=== PATIENT | female | born 1940 | race Caucasian/White ===

== ENCOUNTER 2017-08-21 17:09 | Inpatient (IN) | payer MEDICAID ==
[~2017-08-21] VITALS: Ht 160 cm; Wt 89.0 kg
[2017-08-21] MEDS ORDERED: ASPIRIN 81 MG TAB PO STA (19:14)
[2017-08-21] MEDS ORDERED: NITROGLYCERIN 2% 1 GM OINT PKT TD STA (19:14)
[2017-08-21] MEDS ORDERED: NITROGLYCERIN (SL) 0.4 MG TAB SL PRN (19:30)
[2017-08-21 19:42] LABS: BASOPHIL # 0.1 10^3/ul (0.0-0.1); BASOPHILS % 0.8 % (0.0-2.0); EOSINOPHILS # 0.2 10^3/ul (0.0-0.5); EOSINOPHILS % 2.1 % (0.0-7.0); HEMATOCRIT 36.4 % (37.0-47.0); LYMPHOCYTES # 2.6 10^3/ul (0.8-2.9); LYMPHOCYTES % 34.6 % (15.0-51.0); MEAN CORPUSCULAR HEMOGLOBIN 29.2 pg (29.0-33.0); MEAN CORPUSCULAR VOLUME 88.6 fl (82.0-101.0); MONOCYTE # 0.8 10^3/ul (0.3-0.9); MONOCYTES % 10.2 % (0.0-11.0); NEUTROPHIL # 3.9 10^3/ul (1.6-7.5); NEUTROPHILS % 51.9 % (39.0-77.0); PLATELET COUNT 245 10^3/UL (140-415); RED BLOOD COUNT 4.11 10^6/ul (4.20-5.40); RED CELL DISTRIBUTION WIDTH 12.6 % (11.5-14.5); WHITE BLOOD COUNT 7.5 10^3/ul (4.8-10.8)
--- NOTE | 2017-08-21 20:09 | RADRPT ---
PROCEDURE: XR Chest. CLINICAL INDICATION: Chest pain. TECHNIQUE: Single frontal view. COMPARISON: None. FINDINGS: The lungs are clear. The heart size is normal. There is calcification in the aorta consistent with atherosclerosis. There is no pleural effusion. There is no pneumothorax. IMPRESSION: 1. Atherosclerosis. 2. Otherwise normal chest x-ray. RPTAT: QQ .Dickson Shaikh MD, MD Date Time Electronically viewed and signed by .Dickson Shaikh MD, on 08/21/2017 20:09 .R/
[2017-08-21 20:18] LABS: ANION GAP 11 (8-16); BLOOD UREA NITROGEN 14 mg/dl (7-20); CALCIUM 9.2 mg/dl (8.4-10.2); CARBON DIOXIDE 30 mmol/L (21-31); CHLORIDE 98 mmol/L (97-110); CREATININE 0.95 mg/dl (0.44-1.00); GLUCOSE 123 mg/dl (70-220); POTASSIUM 5.2 mmol/L (3.5-5.1); SODIUM 134 mmol/L (135-144)
[2017-08-21 20:30] LABS: TROPONIN-I < 0.012 ng/ml (0.00-0.12)
[2017-08-21] MEDS ORDERED: ACETAMINOPHEN 325 MG TAB PO PRN (21:00)
[2017-08-21] MEDS ORDERED: ONDANSETRON 4 MG INJ IV PRN (21:00)
--- NOTE | 2017-08-21 21:38 | ERA ---
ER Documentation Chief Complaint Date/Time DATE: 08/21/17 TIME: 21:36 Chief Complaint sob, chest pain when couging HPI Patient is a 76-year-old female with hypertension and high cholesterol who presents with chest pain. She has midsternal chest pain which radiates to her neck. The symptoms have been there for the past 8 days. She said the pain was worse today. She had a cough and shortness of breath as well. She goes to a local clinic for her primary care. ROS All systems reviewed and are negative except as per history of present illness. Allergies Allergies: Coded Allergies: No Known Allergy (Unverified , 08/21/17) PMhx/Soc Positive for hypertension and high cholesterol. FmHx Family History: No coronary disease Physical Exam Vitals Vital Signs Date Time Temp Pulse Resp B/P Pulse Ox O2 Delivery O2 Flow Rate FiO2 08/21/17 20:51 84 22 129/71 98 Room Air 08/21/17 20:00 84 15 131/95 Room Air 08/21/17 19:37 98.0 85 17 157/85 98 Room Air 08/21/17 17:13 98.1 86 18 145/72 99 Physical Exam Const: No acute distress Head: Atraumatic Eyes: Normal Conjunctiva ENT: Normal External Ears, Nose and Mouth. Neck: Full range of motion..~ No meningismus. Resp: Clear to auscultation bilaterally Cardio: Regular rate and rhythm, no murmurs Abd: Soft, non tender, non distended. Normal bowel sounds Skin: No petechiae or rashes Back: No midline or flank tenderness Ext: No cyanosis, or edema Neur: Awake and alert Psych: Normal Mood and Affect Result Diagram: 08/21/17193408/21/171934 Results 24 hrs Laboratory Tests Test 08/21/17 19:35 White Blood Count 7.510^3/ul Red Blood Count 4.1110^6/ul Hemoglobin 12.0g/dl Hematocrit 36.4% Mean Corpuscular Volume 88.6fl Mean Corpuscular Hemoglobin 29.2pg Mean Corpuscular Hemoglobin Concent 33.0g/dl Red Cell Distribution Width 12.6% Platelet Count 11516^3/UL Mean Platelet Volume 10.0fl Neutrophils % 51.9% Lymphocytes % 34.6% Monocytes % 10.2% Eosinophils % 2.1% Basophils % 0.8% Nucleated Red Blood Cells % 0.0/100WBC Neutrophils # 3.910^3/ul Lymphocytes # 2.610^3/ul Monocytes # 0.810^3/ul Eosinophils # 0.210^3/ul Basophils # 0.110^3/ul Nucleated Red Blood Cells # 0.010^3/ul Sodium Level 134mmol/L Potassium Level 5.2mmol/L Chloride Level 98mmol/L Carbon Dioxide Level 30mmol/L Anion Gap 11 Blood Urea Nitrogen 14mg/dl Creatinine 0.95mg/dl Glucose Level 123mg/dl Calcium Level 9.2mg/dl Troponin I < 0.012ng/ml Current Medications Medications (Trade) Dose Ordered Sig/Richard Route PRN Reason Start Time Stop Time Status Last Admin Dose Admin Aspirin (Aspirin) 162 mg ONCE STAT PO 08/21/17 19:14 08/21/17 19:16 DC 08/21/17 19:46 Nitroglycerin (Nitroglycerin 2% Oint) 1 inch ONCE STAT TD 08/21/17 19:14 08/21/17 19:16 DC 08/21/17 20:07 Nitroglycerin (Nitroglycerin (Sl Tab) 0.4 Mg) 1 tab Q5M UP TO 3 DOSES PRN SL CHEST PAIN 08/21/17 19:30 Ondansetron HCl (Zofran Inj) 4 mg ER BRIDGE PRN IV NAUSEA AND/OR VOMITING 08/21/17 21:00 08/22/17 20:59 Acetaminophen (Tylenol Tab) 650 mg ER BRIDGE PRN PO MILD PAIN/FEVER 08/21/17 21:00 08/22/17 20:59 Procedures/MDM EKG #1 read by me: Rate/Rhythm: Regular rate and rhythm at a rate of 86 Intervals: Normal Impression: No evidence of ischemia or arrhythmia EKG #2 read by me: Rate/Rhythm: Regular rate and rhythm at a rate of 88 Intervals: Normal Impression: No evidence of ischemia or arrhythmia PROCEDURE: XR Chest. CLINICAL INDICATION: Chest pain. TECHNIQUE: Single frontal view. COMPARISON: None. FINDINGS: The lungs are clear. The heart size is normal. There is calcification in the aorta consistent with atherosclerosis. There is no pleural effusion. There is no pneumothorax. IMPRESSION: 1. Atherosclerosis. 2. Otherwise normal chest x-ray. RPTAT: QQ .Dickson Shaikh MD, MD Date Time Electronically viewed and signed by .Dickson Shaikh MD, on 08/21/2017 20:09 Patient is a 76-year-old female with hypertension and high cholesterol presents with chest pain. I am concerned for possible acute coronary syndrome. The patient received aspirin and nitroglycerin. The patient will be admitted to a telemetry bed to the care of the panel team. The patient will need further workup for the cause of the chest pain which is potentially acute coronary syndrome. I doubt pneumonia, pneumothorax, pulmonary embolism, or aortic dissection at this time. I spoke with Dr. Patten from the panel team for admission. Departure Diagnosis: Primary Impression: Shortness of breath Additional Impression: Chest pain Qualified Code: R07.9 - Chest pain, unspecified type Condition: YODIT Rae MD Aug 21, 2017 21:38
[2017-08-21 22:45] VITALS: TEMP 98
[2017-08-21 23:00] VITALS: Ht 160 cm; Wt 89.0 kg
[2017-08-21 23:30] VITALS: BP 107/59; RESP 20
[2017-08-22] VITALS (12 sets, daily range): BP systolic 114–128; BP diastolic 58–74; PULSE 73–112; RESP 18
[2017-08-22] MEDS ORDERED: CARV3.1260 PO (00:14)
[2017-08-22] MEDS ORDERED: ENAL20TA PO (00:18)
[2017-08-22] MEDS ORDERED: SIMV20TA2 PO (00:19)
[2017-08-22] MEDS ORDERED: OMEP20CA16 PO (00:20)
[2017-08-22] MEDS ORDERED: morphine 2 MG INJ IV PRN (00:30)
[2017-08-22] MEDS ORDERED: ONDANSETRON 4 MG INJ IV PRN (00:30)
[2017-08-22] MEDS ORDERED: BISACODYL (EC) 5 MG TAB PO PRN (00:30)
[2017-08-22] MEDS ORDERED: NITROGLYCERIN (SL) 0.4 MG TAB SL PRN (00:30)
[2017-08-22] MEDS ORDERED: DOCUSATE SODIUM 100 MG CAP PO PRN (00:30)
[2017-08-22] MEDS ORDERED: NACL 0.9% 3 ML SYG IV SCH (00:30)
[2017-08-22] MEDS: PANTOPRAZOLE (EC) 40 MG TAB PO SCH ×2 (01:08→17:41)
[2017-08-22 01:50] LABS: CREATINE KINASE 148 IU/L (23-200)
[2017-08-22 02:01] LABS: CK-MB 1.26 ng/ml (0.0-2.4)
[2017-08-22 02:08] LABS: TROPONIN-I < 0.012 ng/ml (0.00-0.12)
--- NOTE | 2017-08-22 02:46 | HP ---
Date/Time of Note Date/Time of Note DATE: 08/22/17 TIME: 02:40 Assessment/Plan VTE Prophylaxis VTE Prophylaxis Intervention: SCD's Lines/Catheters IV [facility] Saline Lock Assessment/Plan Chief Complaint/Hosp Course This is a 76 year female being admitted to the telemetry floor for: #1 chest pain: COPD versus viral respiratory infection versus ACS. Patient does have a history of hypertension hyperlipidemia. She also was reporting some shortness of breath. And she also has a 30 year smoking history. At the current time will trend cardiac troponins 3, first set was negative. Will check a echocardiogram. EKG was normal sinus rhythm with no overt ST or T-wave abnormalities. Will also put the patient on duo nebs every 4 hours as well as 1 loading dose of Solu-Medrol at this time. As she did report some subjective fevers again this could be a viral illness as chest x-ray does not reveal any underlying infiltrates or consolidation. Will check a lipid panel, A1c, TSH. Will consider cardiac consultation depending on results and patient's clinical course. #2 hemoptysis: Tracheal irritation from cough versus PE: Patient is a obese female and reports mostly pleuritic pain, at the current time I will get a CTA of the chest to rule out PE and observe for any underlying signs of infection. Will continue to monitor her H&H. Will consider pulmonary consultation if indicated. She does not report any night sweats or chills or weight loss so the current time TB is low on the differential and the chest x-ray is normal. #3 hypertension: Continue home medications of carvedilol, SADIE inhibitor #4 hyperlipidemia: We will continue statin, check lipids #5 DVT and GI prolapses: SCDs, PPI Further treatment strategy will be implemented as per the clinical course Problems: HPI/ROS Admit Date/Time Admit Date/Time Aug 21, 2017 at 20:35 Hx of Present Illness cc: substernal chest pain x 8 days Patient is a 76-year-old female with hypertension and high cholesterol who presents with chest pain. She has midsternal chest pain which radiates to her neck. The symptoms have been there for the past 8 days. She said the pain was worse today. She had a cough and shortness of breath as well. She reports subjective fevers, but did not check her temp. She also reports at times she noticed specs of blood after repeated coughing bouts. She goes to a local clinic for her primary care. She has a 30 pack year smoking history. Denies any recent travel or any recent foreign visitors. She denies any night sweats or chills or weight loss. allergies: nkda meds: Carvedilol, enalapril, simvastatin, omeprazole ROS Const: As per HPI Eyes : No pain discharge or redness or change in visual acuity ENT: No pain, sore throat, congestion, congestion, dysphagia or discharge Respiratory: As per HPI Cardiovascular: As per HPI GI : no change in appetite, abdominal pain, nausea, vomiting, diarrhea, constipation, or change in the color his stool Genitourinary: No dysuria, hematuria, flank pain , discharge or CVA tenderness Musculoskeletal: No joint pain, back pain, neck pain, restricted range of motion in neck or joints Skin: No rash, bruising or hives Neuro: No headache, dizziness, syncope, seizure, focal weakness Endocrine: No polyuria, polydipsia, temperature intolerance Psych: No hallucination, depression, anxiety or suicidal ideation PMH/Family/Social Past Medical History htn, hld, sinusitis Past Surgical History cholecystectomy, hysterectomy, Family History Significant Family History: no pertinent family hx Social History Alcohol Use: none Smoking Status: Former smoker (30 pack years) Drug Use: none Exam/Review of Systems Vital Signs Vitals Vital Signs Date Time Temp Pulse Resp B/P Pulse Ox O2 Delivery O2 Flow Rate FiO2 08/22/17 00:30 85 08/21/17 23:30 98.0 20 107/59 94 08/21/17 22:45 Room Air Exam Exam General: This is an obese female laying in bed in no acute distress HEENT: Atraumatic, normocephalic. The pupils are equal, round and reactive. Extraocular motor are intact Neck: Supple with full range of motion. No rigidity or meningismus Chest: Nontender Lungs: Coarse breath sounds bilaterally, no use of accessory respiratory muscles Heart: Normal S1-S2, Regular rhythm and rate. No overt murmurs appreciated Abdomen: Soft , nontender, nondistended , bowel sounds are present. No guarding no rebound tenderness , No masses or organomegaly. No costovertebral temporal angle mass Extremities: Normal to inspection, no edema no cyanosis Neurologic: Normal mental status, speech normal, cranial nerves II through XII are intact, motor and sensory are intact, no focal weakness Additional Comments PROCEDURE: XR Chest. CLINICAL INDICATION: Chest pain. TECHNIQUE: Single frontal view. COMPARISON: None. FINDINGS: The lungs are clear. The heart size is normal. There is calcification in the aorta consistent with atherosclerosis. There is no pleural effusion. There is no pneumothorax. IMPRESSION: 1. Atherosclerosis. 2. Otherwise normal chest x-ray. RPTAT: QQ .Dickson Shaikh MD, MD Date Time Electronically viewed and signed by .Dickson Shaikh MD, MD on 08/21/2017 20:09 .R/ CC: YODIT GARCIA MD EKG: Rate/Rhythm: Regular rate and rhythm at a rate of 86 Intervals: Normal Impression: No evidence of ischemia or arrhythmia As per ED physician documentation Labs Result Diagram: 08/21/17193408/21/171934 Medications Medications Current Medications Carvedilol (Coreg) 3.125 mg BID PO Last administered on 08/22/17 01:06; Admin Dose 3.125 MG; Start 08/22/17 at 00:30 Enalapril Maleate (Vasotec) 20 mg DAILY PO ; Start 08/22/17 at 09:00 Pantoprazole (Protonix Tab) 40 mg BID@06,18 PO Last administered on 08/22/17 01:08; Admin Dose 40 MG; Start 08/22/17 at 01:00 Atorvastatin Calcium (Lipitor) 10 mg QHS PO ; Start 08/22/17 at 21:00 Ondansetron HCl (Zofran Inj) 4 mg Q6H PRN IV NAUSEA AND/OR VOMITING; Start 08/22/17 at 00:30 Nitroglycerin (Nitroglycerin (Sl Tab) 0.4 Mg) 1 tab Q5M PRN SL CHEST PAIN; Start 08/22/17 at 00:30 Morphine Sulfate (morphine) 2 mg Q4H PRN IV PAIN LEVEL 7-10; Start 08/22/17 at 00:30 Docusate Sodium (Colace) 100 mg Q12H PRN PO CONSTIPATION; Start 08/22/17 at 00: 30 Bisacodyl (Dulcolax) 5 mg DAILY PRN PO CONSTIPATION; Start 08/22/17 at 00:30 SPIKE VILLANUEVA Aug 22, 2017 02:46
[2017-08-22] MEDS ORDERED: METHYLPREDNISOLONE 125 MG INJ IV ONE (03:00)
[2017-08-22] MEDS: ALBUTEROL/IPRATROPIUM (NEB) 3 ML AMP HHN SCH ×5 (05:00→21:18)
[2017-08-22 06:21] LABS: BASOPHILS % 0.6 % (0.0-2.0); EOSINOPHILS # 0.2 10^3/ul (0.0-0.5); EOSINOPHILS % 2.5 % (0.0-7.0); HEMATOCRIT 36.4 % (37.0-47.0); HEMOGLOBIN 11.7 g/dl (12.0-16.0); LYMPHOCYTES # 2.7 10^3/ul (0.8-2.9); LYMPHOCYTES % 42.1 % (15.0-51.0); MEAN CORPUSCULAR HEMOGLOBIN 28.5 pg (29.0-33.0); MEAN CORPUSCULAR HGB CONC 32.1 g/dl (32.0-37.0); MEAN CORPUSCULAR VOLUME 88.8 fl (82.0-101.0); MONOCYTE # 0.8 10^3/ul (0.3-0.9); MONOCYTES % 11.9 % (0.0-11.0); NEUTROPHIL # 2.8 10^3/ul (1.6-7.5); NEUTROPHILS % 42.6 % (39.0-77.0); PLATELET COUNT 253 10^3/UL (140-415); RED CELL DISTRIBUTION WIDTH 11.9 % (11.5-14.5); WHITE BLOOD COUNT 6.5 10^3/ul (4.8-10.8)
[2017-08-22 06:57] LABS: ALBUMIN 3.5 g/dl (3.3-4.9); ALBUMIN/GLOBULIN RATIO 1.02; BILIRUBIN,INDIRECT 0.6 mg/dl (0-1.1); BILIRUBIN,TOTAL 0.6 mg/dl (0.2-1.3); CALCIUM 9.2 mg/dl (8.4-10.2); CHOL/HDL RATIO 4.5 RATIO; CK-MB 1.25 ng/ml (0.0-2.4); CREATINE KINASE 140 IU/L (23-200); CREATININE 0.73 mg/dl (0.44-1.00); MAGNESIUM 1.9 mg/dl (1.7-2.5); POTASSIUM 4.6 mmol/L (3.5-5.1); TOTAL PROTEIN 6.9 g/dl (6.1-8.1)
[2017-08-22 06:59] LABS: TROPONIN-I < 0.012 ng/ml (0.00-0.12)
[2017-08-22 07:12] LABS: THYROID STIMULATING HORMONE 3.05 MIU/L (0.465-4.680)
[2017-08-22] MEDS ORDERED: IOHEXOL 100 ML ONE (08:55)
[2017-08-22] MEDS ORDERED: SOD CHLORIDE 0.9% 100 ML ONE ×2 (08:55→22:30)
--- NOTE | 2017-08-22 09:49 | RADRPT ---
PROCEDURE: CT Chest Angiogram with contrast. CLINICAL INDICATION: Shortness of breath TECHNIQUE: CT scan of the chest with contrast was performed on a multidetector high-resolution CT scanner. The patient was scanned following the uncomplicated intravenous administration of 100 cc o f Isovue 300 contrast. Coronal and sagittal reformatted images were obtained from the axial source images. Additional 3D volumetric renderings were created. Images were reviewed on a [employer] PACS workstation. The total exam CTDI equals 7/42/18 mGy and the total exam DLP equals 702 mGy-cm. One or more of the following dose reduction techniques were used: Automated exposure control, Adjus tment of the mA and/or kV according to patient size, and/or use of iterative reconstruction techniqu e. COMPARISON: Correlation chest x-ray yesterday FINDINGS: Technically adequate exam for the evaluation of the pulmonary arteries to the segmental level. No in traluminal filling defects are seen. Ill-defined right infrahilar mass with extrinsic compression of the right lower lobar pulmonary bing ry and occlusion of the superior segment right lower lobe bronchus with postobstructive consolidatio n. There appears to be invasion into the subcarinal space with loss of normal fat planes with the es ophagus. There is right hilar adenopathy. Calcified bilateral hilar lymph nodes and right lower and left upper lobe calcified granulomas are a lso seen. Bilateral thyroid nodules measuring up to 8 mm in the right inferior thyroid pole. No significant pleural or pericardial effusion. The visualized upper abdomen is grossly unremarkable. Degenerative changes to the thoracic spine are seen. Age indeterminate mild T12 compression fracture . IMPRESSION: No evidence of pulmonary embolus. Ill-defined right infrahilar mass with extrinsic compression of the right lower lobar pulmonary bing ry and occlusion of the superior segment right lower lobe bronchus with postobstructive consolidatio n. There is associated right hilar adenopathy. There appears to be invasion into the subcarinal spac e with loss of normal fat planes with the esophagus. The findings are most concerning for a neoplast ic process. Recommend correlation with bronchoscopy and consider tissue sampling and PET imaging for follow-up. Additional calcified bilateral hilar lymph nodes and right lower and left upper lobe calcified granu philip are likely a sequela of prior granulomatous disease. Age indeterminate mild T12 compression fracture. A call report was made to VALERIA MONGE at 08/22/2017 9:46:22 AM. RPTAT: AA .Isaac Chavez MD, MD Date Time Electronically viewed and signed by .Isaac Chavez MD, on 08/22/2017 09:49 .T/
[2017-08-22] MEDS: ENALAPRIL 20 MG TAB PO SCH (09:53)
--- NOTE | 2017-08-22 11:34 | RADRPT ---
Echocardiogram Report Patient Name: BRODERICK COHN Gender: Female Date: 1940 Study Date: 22-Aug-2017 Policy Service Coordinator: Fara [facility] Location: [address] Ref. Physician: SPIKE VILLANUEVA Quality: Technically Difficult Study Procedures: Transthoracic echocardiogram with complete 2D, M-Mode, and doppler examination. Indications: Chest Pain. 2D/M Mode Doppler Measurement Value Normal Ranges Measurement Value Normal Ranges LVIDd 2D 4.3 3.5 - 5.6 cm AV Peak Jj 1.6 m/sec LVIDs 2D 2.9 2.1 - 4.1 cm AV Peak PG 10.0 mmHg FS 2D 32.9 % LVOT Peak Jj 1.2 m/sec LVPWd 2D 1.3 0.6 - 1.1 cm LVOT Peak PG 6.0 mmHg IVSd 2D 1.3 0.6 - 1.1 cm MV E Peak Jj 0.8 m/sec IVS/LVPW 2D 1.0 MV A Peak Jj 1.3 m/sec AoR Diam 2D 2.2 2.0 - 3.7 cm MV E/A 0.6 LA/Ao 2D 2 0 - 1 MV Decel Time 176 msec EDV 2D 80.6 cm3 MV E/A 0.6 ESV 2D 24.4 cm3 LA Dimen 2D 3.5 2.3 - 4.0 cm Findings Left Ventricle: Normal left ventricular systolic function. Normal left ventricular cavity size. Normal left ventricular wall thickness. Ejection fraction is visually estimated at 65 %. Tissue Doppler/Mitral Doppler indices are within normal limits. Right Ventricle: Normal right ventricular size. Normal right ventricular systolic function. Left Atrium: The left atrium is normal in size. Right Atrium: The right atrium is normal in size. Mitral Valve: Normal appearance of the mitral valve. Normal appearance and function of the mitral valve with trace physiologic regurgitation. Trace mitral regurgitation. Aortic Valve: Normal appearance of the aortic valve. No significant aortic stenosis or insufficiency. Tricuspid Valve: Normal appearance of the tricuspid valve. Unable to obtain RVSP due to minimal presence of tricuspid regurgitation. There is trace tricuspid regurgitation. Pulmonic Valve: Pulmonic valve not well visualized. There is trace pulmonic regurgitation. Pericardium: Normal pericardium with no significant pericardial effusion. Aorta: Normal aortic root. IVC: Normal size and normal respiratory collapse consistent with normal right atrial pressure. Conclusions 1.Normal left ventricular systolic function. Normal left ventricular cavity size. Normal left ventricular wall thickness. Ejection fraction is visually estimated at 65 %. Tissue Doppler/Mitral Doppler indices are within normal limits. 2.Unable to obtain RVSP due to minimal presence of tricuspid regurgitation. Normal size and normal respiratory collapse consistent with normal right atrial pressure. Electronically Signed By: Donte Khan 22-Aug-2017 11:33:20 -0700 Patient Name: BRODERICK COHN Study Date: 22-Aug-2017 [id number]
--- NOTE | 2017-08-22 15:41 | PN ---
Date/Time of Note Date/Time of Note DATE: 08/22/17 TIME: 15:38 Assessment/Plan VTE Prophylaxis VTE Prophylaxis Intervention: SCD's Lines/Catheters IV Catheter Type (from Nrsg): Saline Lock Assessment/Plan Assessment/Plan 76 yo F presented with chest pain found to have R lung mass. This is the most likely cause of her pain. #lung mass: pulm consult for bronch v other tissue sampling consider staging studies pending pulm eval cont home meds general diet dc tele Subjective 24 Hr Interval Summary Free Text/Dictation CT from this AM with R upper lung mass. dw pt and daughter using language line. Pt reports a week of dysphagia, no weight loss Exam/Review of Systems Vital Signs Vitals Vital Signs Date Time Temp Pulse Resp B/P Pulse Ox O2 Delivery O2 Flow Rate FiO2 08/22/17 13:37 98.0 78 18 128/71 98 08/21/17 23:00 Nasal Cannula 2.0 Intake and Output 08/21/17 08/21/17 08/22/17 15:00 23:00 07:00 Intake Total 400 ml Balance 400 ml Exam nad no mrg lungs clear abd soft no rashes CT chest with R hilar mass Results Result Diagram: 08/22/17 0558 08/22/17 0558 Results 24 hrs Laboratory Tests Test 08/21/17 19:35 08/22/17 01:00 08/22/17 05:58 White Blood Count 7.5 6.5 Red Blood Count 4.11 L 4.10 L Hemoglobin 12.0 11.7 L Hematocrit 36.4 L 36.4 L Mean Corpuscular Volume 88.6 88.8 Mean Corpuscular Hemoglobin 29.2 28.5 L Mean Corpuscular Hemoglobin Concent 33.0 32.1 Red Cell Distribution Width 12.6 11.9 Platelet Count 245 253 Mean Platelet Volume 10.0 10.0 Neutrophils % 51.9 42.6 Lymphocytes % 34.6 42.1 Monocytes % 10.2 11.9 H Eosinophils % 2.1 2.5 Basophils % 0.8 0.6 Nucleated Red Blood Cells % 0.0 0.0 Neutrophils # 3.9 2.8 Lymphocytes # 2.6 2.7 Monocytes # 0.8 0.8 Eosinophils # 0.2 0.2 Basophils # 0.1 0.0 Nucleated Red Blood Cells # 0.0 0.0 Sodium Level 134 L 137 Potassium Level 5.2 H 4.6 Chloride Level 98 102 Carbon Dioxide Level 30 30 Anion Gap 11 10 Blood Urea Nitrogen 14 10 Creatinine 0.95 0.73 Glucose Level 123 100 Calcium Level 9.2 9.2 Troponin I < 0.012 < 0.012 < 0.012 Creatine Kinase 148 140 Creatine Kinase Index 0.9 0.9 Creatinine Kinase MB (Mass) 1.26 1.25 Hemoglobin A1c 5.7 Magnesium Level 1.9 Total Bilirubin 0.6 Direct Bilirubin 0.00 Indirect Bilirubin 0.6 Aspartate Amino Transf (AST/SGOT) 21 Alanine Aminotransferase (ALT/SGPT) 29 Alkaline Phosphatase 106 Total Protein 6.9 Albumin 3.5 Globulin 3.40 H Albumin/Globulin Ratio 1.02 Triglycerides Level 145 Cholesterol Level 205 H LDL Cholesterol, Calculated 131 HDL Cholesterol 45 Cholesterol/HDL Ratio 4.5 Thyroid Stimulating Hormone (TSH) 3.050 Medications Medications Current Medications Carvedilol (Coreg) 3.125 mg BID PO Last administered on 08/22/17 09:54; Admin Dose 3.125 MG; Start 08/22/17 at 00:30 Enalapril Maleate (Vasotec) 20 mg DAILY PO Last administered on 08/22/17 09:53 ; Admin Dose 20 MG; Start 08/22/17 at 09:00 Pantoprazole (Protonix Tab) 40 mg BID@06,18 PO Last administered on 08/22/17 01:08; Admin Dose 40 MG; Start 08/22/17 at 01:00 Atorvastatin Calcium (Lipitor) 10 mg QHS PO ; Start 08/22/17 at 21:00 Ondansetron HCl (Zofran Inj) 4 mg Q6H PRN IV NAUSEA AND/OR VOMITING; Start 08/22/17 at 00:30 Nitroglycerin (Nitroglycerin (Sl Tab) 0.4 Mg) 1 tab Q5M PRN SL CHEST PAIN; Start 08/22/17 at 00:30 Morphine Sulfate (morphine) 2 mg Q4H PRN IV PAIN LEVEL 7-10; Start 08/22/17 at 00:30 Docusate Sodium (Colace) 100 mg Q12H PRN PO CONSTIPATION; Start 08/22/17 at 00: 30 Bisacodyl (Dulcolax) 5 mg DAILY PRN PO CONSTIPATION; Start 08/22/17 at 00:30 SONG NOBLES MD Aug 22, 2017 15:41
--- NOTE | 2017-08-22 16:37 | CONS ---
Date/Time of Note Date/Time of Note DATE: 08/22/17 TIME: 16:29 Assessment/Plan Assessment/Plan Additional Assessment/Plan IMP: 1. Right-sided perihilar lung mass with associated mediastinal and hilar adenopathy--c/w primary bronchogenic cancer. Radiographically T3(or3)N2 for now. 2. Post-obstructive pneumonia RECS: 1. Would need a bronchoscopy with biopsy of lesion involving bronchus intermedius and proximal RLL, as well as sampling subcarinal LN 2. Complete staging with CT abdomen/pelvis/brain. 3. Treat for post-obstructive pna with augmentin 4. BDs 5. Check coags; possible bronch on Wednesday. Consultation Date/Type/Reason Admit Date/Time Aug 21, 2017 at 20:35 Type of Consultation: Pulmonary Hx of Present Illness 76-year-old year-old Beninese speaking female with hypertension and high cholesterol who presents with chest pain and trace hemoptysis found to have an ill-defined right lower elbert-hilar mass with associated mediastinal and hilar adenopathy. Prior tobacco history and history of exposure to biomass fuels cooking at home with wood burning ovens. Constitutional: improved, no complaints Eyes: no complaints ENT: congestion, no complaints Respiratory: cough, pleuritic pain, shortness of breath, sputum Cardiovascular: chest pain, no complaints Gastrointestinal: no complaints Genitourinary: no complaints Musculoskeletal: no complaints Skin: no complaints Neurologic: no complaints Endocrine: no complaints Lymphatic: no complaints Psychological: no complaints Past Medical History Medical History: high cholesterol Past Surgical History Past Surgical Hx: no surgical history Family History Significant Family History: no pertinent family hx Social History Alcohol Use: none Smoking Status: Former smoker (30 pack years) Drug Use: none Other Social History Cooking at home for years with wood burning ovens. Exam/Review of Systems Vital Signs Vitals Vital Signs Date Time Temp Pulse Resp B/P Pulse Ox O2 Delivery O2 Flow Rate FiO2 08/22/17 16:11 107 08/22/17 13:37 98.0 18 128/71 98 08/21/17 23:00 Nasal Cannula 2.0 Intake and Output 08/21/17 08/21/17 08/22/17 15:00 23:00 07:00 Intake Total 400 ml Balance 400 ml Exam Constitutional: alert, oriented, well developed Psych: nl mood/affect, no complaints Head: atraumatic, normocephalic Eyes: EOMI, nl conjunctiva, nl lids, nl sclera ENMT: mucosa pink and moist, nl external ears & nose, nl lips & teeth, nl nasal mucosa & septum Neck: non-tender, supple Respiratory: clear to auscultation, crackles/rales, normal air movement Cardiovascular: nl pulses, regular rate and rhythm Gastrointestinal: nl liver, spleen, non-tender, soft Musculoskeletal: nl extremities to inspection, nl gait and stance Extremities: normal pulses Neurological: [employer] II-XII intact, nl mental status Results Result Diagram: 08/22/17 0558 08/22/17 0558 Results 24 hrs Laboratory Tests Test 08/21/17 19:35 08/22/17 01:00 08/22/17 05:58 White Blood Count 7.5 6.5 Red Blood Count 4.11 L 4.10 L Hemoglobin 12.0 11.7 L Hematocrit 36.4 L 36.4 L Mean Corpuscular Volume 88.6 88.8 Mean Corpuscular Hemoglobin 29.2 28.5 L Mean Corpuscular Hemoglobin Concent 33.0 32.1 Red Cell Distribution Width 12.6 11.9 Platelet Count 245 253 Mean Platelet Volume 10.0 10.0 Neutrophils % 51.9 42.6 Lymphocytes % 34.6 42.1 Monocytes % 10.2 11.9 H Eosinophils % 2.1 2.5 Basophils % 0.8 0.6 Nucleated Red Blood Cells % 0.0 0.0 Neutrophils # 3.9 2.8 Lymphocytes # 2.6 2.7 Monocytes # 0.8 0.8 Eosinophils # 0.2 0.2 Basophils # 0.1 0.0 Nucleated Red Blood Cells # 0.0 0.0 Sodium Level 134 L 137 Potassium Level 5.2 H 4.6 Chloride Level 98 102 Carbon Dioxide Level 30 30 Anion Gap 11 10 Blood Urea Nitrogen 14 10 Creatinine 0.95 0.73 Glucose Level 123 100 Calcium Level 9.2 9.2 Troponin I < 0.012 < 0.012 < 0.012 Creatine Kinase 148 140 Creatine Kinase Index 0.9 0.9 Creatinine Kinase MB (Mass) 1.26 1.25 Hemoglobin A1c 5.7 Magnesium Level 1.9 Total Bilirubin 0.6 Direct Bilirubin 0.00 Indirect Bilirubin 0.6 Aspartate Amino Transf (AST/SGOT) 21 Alanine Aminotransferase (ALT/SGPT) 29 Alkaline Phosphatase 106 Total Protein 6.9 Albumin 3.5 Globulin 3.40 H Albumin/Globulin Ratio 1.02 Triglycerides Level 145 Cholesterol Level 205 H LDL Cholesterol, Calculated 131 HDL Cholesterol 45 Cholesterol/HDL Ratio 4.5 Thyroid Stimulating Hormone (TSH) 3.050 Medications Medications Current Medications Carvedilol (Coreg) 3.125 mg BID PO Last administered on 08/22/17 09:54; Admin Dose 3.125 MG; Start 08/22/17 at 00:30 Enalapril Maleate (Vasotec) 20 mg DAILY PO Last administered on 08/22/17 09:53 ; Admin Dose 20 MG; Start 08/22/17 at 09:00 Pantoprazole (Protonix Tab) 40 mg BID@06,18 PO Last administered on 08/22/17 01:08; Admin Dose 40 MG; Start 08/22/17 at 01:00 Atorvastatin Calcium (Lipitor) 10 mg QHS PO ; Start 08/22/17 at 21:00 Ondansetron HCl (Zofran Inj) 4 mg Q6H PRN IV NAUSEA AND/OR VOMITING; Start 08/22/17 at 00:30 Nitroglycerin (Nitroglycerin (Sl Tab) 0.4 Mg) 1 tab Q5M PRN SL CHEST PAIN; Start 08/22/17 at 00:30 Morphine Sulfate (morphine) 2 mg Q4H PRN IV PAIN LEVEL 7-10; Start 08/22/17 at 00:30 Docusate Sodium (Colace) 100 mg Q12H PRN PO CONSTIPATION; Start 08/22/17 at 00: 30 Bisacodyl (Dulcolax) 5 mg DAILY PRN PO CONSTIPATION; Start 08/22/17 at 00:30 LIBORIO ANTON MD Aug 22, 2017 16:37
[2017-08-22] MEDS: ATORVASTATIN 10 MG TAB PO SCH (20:39)
[2017-08-22] MEDS: AMOXICILLIN/CLAV 875 MG TAB PO SCH (20:39)
[2017-08-22] MEDS ORDERED: IOHEXOL 300MG/ML 150 ML BTL ONE (22:30)
[2017-08-23] MEDS: ALBUTEROL/IPRATROPIUM (NEB) 3 ML AMP HHN SCH ×7 (01:00→21:27)
[2017-08-23 01:55] VITALS: BP 103/59; RESP 18
[2017-08-23 06:11] LABS: INR 1.01; PROTIME 13.3 Sec (12.2-14.2)
[2017-08-23 06:12] LABS: PARTIAL THROMBOPLASTIN TIME 29.3 Sec (25.0-35.0)
[2017-08-23] MEDS: PANTOPRAZOLE (EC) 40 MG TAB PO SCH ×2 (06:23→17:17)
[2017-08-23 07:40] VITALS: BP 140/76; RESP 18
--- NOTE | 2017-08-23 07:56 | RADRPT ---
PROCEDURE: CT scan of the brain with and without contrast. CLINICAL INDICATION: Staging. TECHNIQUE: Thin section axial, coronal and sagittal images were performed through the brain with a nd without injection of 75 cc of Omnipaque-300.. Radiation dose: CTDI: 45 and DLP: 1441. One or more of the following dose reduction techniques were used: - Automated exposure control. - Adjustment of the mA and/or kV according to patient size. Use of iterative reconstruction technique. COMPARISON: No. FINDINGS: The fourth, third and lateral ventricles are moderately dilated with proportional sulcal dilatation. No enhancing or nonenhancing mass is noted on pre or postcontrast images. There is an empty sella. There are vascular calcifications in the cavernous portions of the internal carotid arteries. There is no evidence of an aneurysm or AV malformation. The paranasal sinuses are clear. The mastoid air cells and internal auditory canals are normal. The dural sinuses are patent. The bony calvarium is intact with no evidence of a bone metastasis. IMPRESSION: 1. No brain metastasis is identified. 2. Mild cerebral and cerebellar atrophy. 3. Atherosclerotic vascular disease involving the cavernous portions of the internal carotid arteri es. 4. Empty sella. RPTAT:AAJJ Physician Ifeanyi Date Time Electronically viewed and signed by Physician Ifeanyi on 08/23/2017 07:56 JORGE L
[2017-08-23] MEDS: AMOXICILLIN/CLAV 875 MG TAB PO SCH ×3 (08:46→20:38)
[2017-08-23] MEDS: ENALAPRIL 20 MG TAB PO SCH ×2 (08:47→10:23)
[2017-08-23] MEDS ORDERED: SOD CHLORIDE 0.9% 100 ML ONE (09:29)
[2017-08-23] MEDS ORDERED: IODIXANOL LOCM 100 ML BTL ONE (09:30)
--- NOTE | 2017-08-23 11:40 | PN ---
Date/Time of Note Date/Time of Note DATE: 08/23/17 TIME: 11:33 Assessment/Plan VTE Prophylaxis VTE Prophylaxis Intervention: SCD's Lines/Catheters IV [facility] Saline Lock Assessment/Plan Chief Complaint/Hosp Course Assessment/Plan: 76 yo F presented with chest pain found to have R lung mass, with possible postobstructive pneumonia as well. 1. lung mass: Per pulmonary team, this likely represents a right-sided perihilar lung mass with associated mediastinal and hilar adenopathy--c/w primary bronchogenic cancer. Radiographically T3(or3)N2 for now. - Follow-up pulm consult for bronch v other tissue sampling - consider staging studies -CT abdomen pelvis results are still pending, follow-up these - cont home meds - general diet -Continue Augmentin 2. High cholesterol: Continue Lipitor Problems: Subjective 24 Hr Interval Summary Free Text/Dictation No acute events overnight, seen by pulmonary team yesterday. Exam/Review of Systems Vital Signs Vitals Vital Signs Date Time Temp Pulse Resp B/P Pulse Ox O2 Delivery O2 Flow Rate FiO2 08/23/17 08:05 82 18 98 21 08/23/17 08:00 Nasal Cannula 08/23/17 07:40 98.9 140/76 08/22/17 20:22 2.0 Intake and Output 08/22/17 08/22/17 08/23/17 15:00 23:00 07:00 Intake Total 750 ml 200 ml Balance 750 ml 200 ml Exam General: obese female laying in bed in no acute distress HEENT: Atraumatic, normocephalic. The pupils are equal, round and reactive. Extraocular motor are intact Neck: Supple with full range of motion. No rigidity or meningismus Chest: Nontender Lungs: Coarse breath sounds bilaterally, no use of accessory respiratory muscles Heart: Normal S1-S2, Regular rhythm and rate. No overt murmurs appreciated Abdomen: Soft , nontender, nondistended, bowel sounds are present. No guarding no rebound tenderness Extremities: Normal to inspection, no edema no cyanosis Neurologic: Normal mental status, speech normal, cranial nerves II through XII are intact, motor and sensory are intact, no focal weakness Results Result Diagram: 08/22/17 0558 08/22/17 0558 Results 24 hrs Laboratory Tests Test 08/23/17 04:39 Prothrombin Time 13.3 Prothrombin Time Ratio 1.0 INR International Normalized Ratio 1.01 Activated Partial Thromboplast Time 29.3 Medications Medications Current Medications Carvedilol (Coreg) 3.125 mg BID PO Last administered on 08/23/17 10:23; Admin Dose 3.125 MG; Start 08/22/17 at 00:30 Enalapril Maleate (Vasotec) 20 mg DAILY PO Last administered on 08/23/17 10:23 ; Admin Dose 20 MG; Start 08/22/17 at 09:00 Pantoprazole (Protonix Tab) 40 mg BID@,18 PO Last administered on 08/23/17 06:23; Admin Dose 40 MG; Start 08/22/17 at 01:00 Atorvastatin Calcium (Lipitor) 10 mg QHS PO Last administered on 08/22/17 20: 39; Admin Dose 10 MG; Start 08/22/17 at 21:00 Ondansetron HCl (Zofran Inj) 4 mg Q6H PRN IV NAUSEA AND/OR VOMITING; Start 08/22/17 at 00:30 Nitroglycerin (Nitroglycerin (Sl Tab) 0.4 Mg) 1 tab Q5M PRN SL CHEST PAIN; Start 08/22/17 at 00:30 Morphine Sulfate (morphine) 2 mg Q4H PRN IV PAIN LEVEL 7-10; Start 08/22/17 at 00:30 Docusate Sodium (Colace) 100 mg Q12H PRN PO CONSTIPATION; Start 08/22/17 at 00: 30 Bisacodyl (Dulcolax) 5 mg DAILY PRN PO CONSTIPATION; Start 08/22/17 at 00:30 Amoxicillin/ Clavulanate Potassium (Augmentin) 875 mg BID PO Last administered on 08/23/17 10:23; Admin Dose 875 MG; Start 08/22/17 at 21:00; Stop 08/29/17 at 20:59 ALANNA TAM Aug 23, 2017 11:40
[2017-08-23 14:35] VITALS: BP 133/64; RESP 18
--- NOTE | 2017-08-23 15:24 | RADRPT ---
PROCEDURE: CT Abdomen and Pelvis with contrast. CLINICAL INDICATION: Staging. Right infrahilar pulmonary mass. Abdomen and pelvis pain. TECHNIQUE: CT scan of the abdomen and pelvis with contrast was performed. The patient was scanned following the uncomplicated intravenous administration of 100 cc of Visipaque 320. Coronal and sag ittal reformatted images were obtained from the axial source images. Images were reviewed on a high- resolution PACS workstation. Total exam DLP is 957.43 mGy-cm. CTDIvol is 17.81 mGy. One or more o f the following dose reduction techniques were used: Automated exposure control, adjustment of the m A and/or kV according to patient size, use of iterative reconstruction technique. COMPARISON: CT pulmonary angiogram dated 08/22/2017. FINDINGS: There is mild atelectasis at the right lung base posteriorly medially. The lung bases are otherwise normal. There is no pleural effusion or pericardial effusion. The heart size is normal. The liver is normal in size and attenuation. There is no focal hepatic lesion. The gallbladder is not visualized indicating it may be surgically absent. The bile ducts are mildly diffusely dilated with no obstructing lesion visualized. The spleen is normal in size. There is no focal splenic lesion. Both adrenals are normal with no enlargement or mass. The pancreas is unremarkable with no mass or evidence of pancreatitis. Both kidneys demonstrate normal contrast enhancement. There is no renal mass or hydronephrosis. The abdominal aorta is not dilated. There is calcification in the aorta consistent with atherosclero sis. There is no retroperitoneal lymphadenopathy or mass. There is no pelvic lymphadenopathy or mass. The bladder and distal ureters are normal. The periappendiceal region is unremarkable with no evidence of appendicitis. The appendix is well se en and appears normal. The bowel and mesentery are normal. There is diastasis of the rectus abdominous with midline abdomin al wall hernia containing omentum. There is no herniated bowel. There is no free fluid or free gas. There are degenerative changes of the spine. There is no fracture or lytic lesion IMPRESSION: 1. Mild atelectasis at the right lung base posteriorly. 2. Gallbladder not visualized indicating it may be surgically absent. 3. Mildly diffusely dilated bile ducts with no obstructing lesion visualized. 4. Atherosclerosis. 5. Diastasis of the rectus abdominous with midline abdominal wall hernia containing omentum. No her niated bowel. 6. Degenerative changes of the spine. RPTAT: QQ .Dickson Shaikh MD, Date Time Electronically viewed and signed by .Dickson Shaikh MD, MD on 08/23/2017 15:24 .R/
[2017-08-23 19:17] VITALS: BP 119/73; RESP 18
[2017-08-23] MEDS: ATORVASTATIN 10 MG TAB PO SCH (20:38)
[2017-08-24] MEDS: ALBUTEROL/IPRATROPIUM (NEB) 3 ML AMP HHN SCH ×6 (00:44→20:20)
[2017-08-24 01:39] VITALS: BP 131/77; RESP 18
[2017-08-24 05:44] LABS: BASOPHILS % 0.4 % (0.0-2.0); EOSINOPHILS # 0.1 10^3/ul (0.0-0.5); EOSINOPHILS % 0.6 % (0.0-7.0); HEMATOCRIT 37.1 % (37.0-47.0); HEMOGLOBIN 11.7 g/dl (12.0-16.0); LYMPHOCYTES # 3.9 10^3/ul (0.8-2.9); LYMPHOCYTES % 39.8 % (15.0-51.0); MEAN CORPUSCULAR HEMOGLOBIN 28.2 pg (29.0-33.0); MEAN CORPUSCULAR HGB CONC 31.5 g/dl (32.0-37.0); MEAN CORPUSCULAR VOLUME 89.4 fl (82.0-101.0); MEAN PLATELET VOLUME 9.9 fl (7.4-10.4); MONOCYTE # 0.7 10^3/ul (0.3-0.9); MONOCYTES % 7.4 % (0.0-11.0); NEUTROPHIL # 5.1 10^3/ul (1.6-7.5); NEUTROPHILS % 51.4 % (39.0-77.0); PLATELET COUNT 274 10^3/UL (140-415); RED BLOOD COUNT 4.15 10^6/ul (4.20-5.40); RED CELL DISTRIBUTION WIDTH 12.3 % (11.5-14.5); WHITE BLOOD COUNT 9.9 10^3/ul (4.8-10.8)
[2017-08-24 06:28] LABS: CALCIUM 9.1 mg/dl (8.4-10.2); CREATININE 0.95 mg/dl (0.44-1.00); POTASSIUM 4.6 mmol/L (3.5-5.1)
[2017-08-24] MEDS: PANTOPRAZOLE (EC) 40 MG TAB PO SCH ×2 (06:44→17:29)
[2017-08-24 07:52] VITALS: BP 133/73; RESP 20
[2017-08-24] MEDS: AMOXICILLIN/CLAV 875 MG TAB PO SCH ×2 (08:22→20:48)
[2017-08-24] MEDS: ENALAPRIL 20 MG TAB PO SCH (08:22)
--- NOTE | 2017-08-24 11:01 | PN ---
Date/Time of Note Date/Time of Note DATE: 08/24/17 TIME: 10:59 Assessment/Plan VTE Prophylaxis VTE Prophylaxis Intervention: SCD's Lines/Catheters IV Catheter Type (from Nrs): Saline Lock Assessment/Plan Chief Complaint/Hosp Course Assessment/Plan: 76 yo F presented with chest pain found to have R lung mass, with possible postobstructive pneumonia as well. 1. lung mass: Per pulmonary team, this likely represents a right-sided perihilar lung mass with associated mediastinal and hilar adenopathy--c/w primary bronchogenic cancer. Radiographically T3(or3)N2 for now. - Follow-up pulm consult for bronch v other tissue sampling -Continue pain control medications and cough medicines as needed - cont home meds - general diet -Continue Augmentin 2. High cholesterol: Continue Lipitor Problems: Subjective 24 Hr Interval Summary Free Text/Dictation Patient had CT scan abdomen pelvis performed yesterday. No acute events overnight. Exam/Review of Systems Vital Signs Vitals Vital Signs Date Time Temp Pulse Resp B/P Pulse Ox O2 Delivery O2 Flow Rate FiO2 08/24/17 10:11 80 20 96 21 08/24/17 07:52 99.4 133/73 08/23/17 20:00 Nasal Cannula 08/22/17 20:22 2.0 Intake and Output 08/23/17 08/23/17 08/24/17 15:00 23:00 07:00 Intake Total 860 ml Balance 860 ml Exam General: obese female laying in bed in no acute distress HEENT: Atraumatic, normocephalic. The pupils are equal, round and reactive. Extraocular motor are intact Neck: Supple with full range of motion. No rigidity or meningismus Chest: Nontender Lungs: Coarse breath sounds bilaterally, no use of accessory respiratory muscles Heart: Normal S1-S2, Regular rhythm and rate. No overt murmurs appreciated Abdomen: Soft , nontender, nondistended, bowel sounds are present. No guarding no rebound tenderness Extremities: Normal to inspection, no edema no cyanosis Neurologic: Normal mental status, speech normal, cranial nerves II through XII are intact, motor and sensory are intact, no focal weakness Results Result Diagram: 08/24/17 0530 08/24/17 0530 Results 24 hrs Laboratory Tests Test 08/24/17 05:30 White Blood Count 9.9 # Red Blood Count 4.15 L Hemoglobin 11.7 L Hematocrit 37.1 Mean Corpuscular Volume 89.4 Mean Corpuscular Hemoglobin 28.2 L Mean Corpuscular Hemoglobin Concent 31.5 L Red Cell Distribution Width 12.3 Platelet Count 274 Mean Platelet Volume 9.9 Neutrophils % 51.4 Lymphocytes % 39.8 Monocytes % 7.4 Eosinophils % 0.6 Basophils % 0.4 Nucleated Red Blood Cells % 0.0 Neutrophils # 5.1 Lymphocytes # 3.9 H Monocytes # 0.7 Eosinophils # 0.1 Basophils # 0.0 Nucleated Red Blood Cells # 0.0 Sodium Level 139 Potassium Level 4.6 Chloride Level 100 Carbon Dioxide Level 32 H Anion Gap 12 Blood Urea Nitrogen 16 Creatinine 0.95 Glucose Level 94 Calcium Level 9.1 Medications Medications Current Medications Carvedilol (Coreg) 3.125 mg BID PO Last administered on 08/24/17 08:23; Admin Dose 3.125 MG; Start 08/22/17 at 00:30 Enalapril Maleate (Vasotec) 20 mg DAILY PO Last administered on 08/24/17 08: 22; Admin Dose 20 MG; Start 08/22/17 at 09:00 Pantoprazole (Protonix Tab) 40 mg BID@06,18 PO Last administered on 08/24/17 06:44; Admin Dose 40 MG; Start 08/22/17 at 01:00 Atorvastatin Calcium (Lipitor) 10 mg QHS PO Last administered on 08/23/17 20: 38; Admin Dose 10 MG; Start 08/22/17 at 21:00 Ondansetron HCl (Zofran Inj) 4 mg Q6H PRN IV NAUSEA AND/OR VOMITING; Start 08/22/17 at 00:30 Nitroglycerin (Nitroglycerin (Sl Tab) 0.4 Mg) 1 tab Q5M PRN SL CHEST PAIN; Start 08/22/17 at 00:30 Morphine Sulfate (morphine) 2 mg Q4H PRN IV PAIN LEVEL 7-10; Start 08/22/17 at 00:30 Docusate Sodium (Colace) 100 mg Q12H PRN PO CONSTIPATION; Start 08/22/17 at 00: 30 Bisacodyl (Dulcolax) 5 mg DAILY PRN PO CONSTIPATION; Start 08/22/17 at 00:30 Amoxicillin/ Clavulanate Potassium (Augmentin) 875 mg BID PO Last administered on 08/24/17t 08:22; Admin Dose 875 MG; Start 08/22/17 at 21:00; Stop 08/29/17 at 20:59 ALANNA TAM Aug 24, 2017 11:01
[2017-08-24 14:07] VITALS: BP 106/71; RESP 18
--- NOTE | 2017-08-24 14:24 | CONS ---
Date/Time of Note Date/Time of Note DATE: 08/24/17 TIME: 14:22 Assessment/Plan Assessment/Plan Additional Assessment/Plan Assessment and recommendations; next 1. Patient admitted with chest pain and hemoptysis discovered to have right perihilar mass which appears malignant until proven otherwise. Continue current treatment. Patient will need to have a bronchoscopy performed. Consultation Date/Type/Reason Admit Date/Time Aug 21, 2017 at 20:35 Initial Consult Date Type of Consultation: Pulmonary 24 HR Interval Summary Free Text/Dictation Patient's condition is stable. Complains of mid chest discomfort and occasional pain. Complains of scant cough. Denies any hemoptysis. General exam; elderly female, awake and alert. Currently in no distress. Exam/Review of Systems Vital Signs Vitals Vital Signs Date Time Temp Pulse Resp B/P Pulse Ox O2 Delivery O2 Flow Rate FiO2 08/24/17 14:07 98.4 107 18 106/71 97 08/24/17 13:19 21 08/24/17 08:00 Nasal Cannula 08/22/17 20:22 2.0 Intake and Output 08/23/17 08/23/17 08/24/17 15:00 23:00 07:00 Intake Total 860 ml Balance 860 ml Exam HEENT exam; supple neck, no JVD. No lymphadenopathy. Midline trachea. No thyromegaly. Patient is edentulous. No neck masses. Pupils are midsize and reactive to light. Chest exam; diminished but clear breath sounds. S1-S2 audible, no murmurs. Regular rhythm. Abdomen exam; soft, protuberant. No organomegaly. Nontender. Bowel sounds audible. Extremity exam; no peripheral edema. No clubbing. Pulses 1+ bilaterally. CARVER HAND exam; no focal Z. Results Result Diagram: 08/24/17 0530 08/24/17 0530 Results 24 hrs Laboratory Tests Test 08/24/17 05:30 White Blood Count 9.9 # Red Blood Count 4.15 L Hemoglobin 11.7 L Hematocrit 37.1 Mean Corpuscular Volume 89.4 Mean Corpuscular Hemoglobin 28.2 L Mean Corpuscular Hemoglobin Concent 31.5 L Red Cell Distribution Width 12.3 Platelet Count 274 Mean Platelet Volume 9.9 Neutrophils % 51.4 Lymphocytes % 39.8 Monocytes % 7.4 Eosinophils % 0.6 Basophils % 0.4 Nucleated Red Blood Cells % 0.0 Neutrophils # 5.1 Lymphocytes # 3.9 H Monocytes # 0.7 Eosinophils # 0.1 Basophils # 0.0 Nucleated Red Blood Cells # 0.0 Sodium Level 139 Potassium Level 4.6 Chloride Level 100 Carbon Dioxide Level 32 H Anion Gap 12 Blood Urea Nitrogen 16 Creatinine 0.95 Glucose Level 94 Calcium Level 9.1 Medications Medications Current Medications Carvedilol (Coreg) 3.125 mg BID PO Last administered on 08/24/17 08:23; Admin Dose 3.125 MG; Start 08/22/17 at 00:30 Enalapril Maleate (Vasotec) 20 mg DAILY PO Last administered on 08/24/17 08: 22; Admin Dose 20 MG; Start 08/22/17 at 09:00 Pantoprazole (Protonix Tab) 40 mg BID@06,18 PO Last administered on 08/24/17 06:44; Admin Dose 40 MG; Start 08/22/17 at 01:00 Atorvastatin Calcium (Lipitor) 10 mg QHS PO Last administered on 08/23/17 20: 38; Admin Dose 10 MG; Start 08/22/17 at 21:00 Ondansetron HCl (Zofran Inj) 4 mg Q6H PRN IV NAUSEA AND/OR VOMITING; Start 08/22/17 at 00:30 Nitroglycerin (Nitroglycerin (Sl Tab) 0.4 Mg) 1 tab Q5M PRN SL CHEST PAIN; Start 08/22/17 at 00:30 Morphine Sulfate (morphine) 2 mg Q4H PRN IV PAIN LEVEL 7-10; Start 08/22/17 at 00:30 Docusate Sodium (Colace) 100 mg Q12H PRN PO CONSTIPATION; Start 08/22/17 at 00: 30 Bisacodyl (Dulcolax) 5 mg DAILY PRN PO CONSTIPATION; Start 08/22/17 at 00:30 Amoxicillin/ Clavulanate Potassium (Augmentin) 875 mg BID PO Last administered on 08/24/17 08:22; Admin Dose 875 MG; Start 08/22/17 at 21:00; Stop 08/29/17 at 20:59 ALICIA JACOBSON Aug 24, 2017 14:24
[2017-08-24 20:00] VITALS: BP 113/68; RESP 20
[2017-08-24] MEDS: ATORVASTATIN 10 MG TAB PO SCH (20:48)
[2017-08-25] MEDS: ALBUTEROL/IPRATROPIUM (NEB) 3 ML AMP HHN SCH ×6 (01:36→20:56)
[2017-08-25 02:16] VITALS: BP 116/64; RESP 16
[2017-08-25 05:48] LABS: BASOPHIL # 0.1 10^3/ul (0.0-0.1); BASOPHILS % 0.7 % (0.0-2.0); EOSINOPHILS # 0.1 10^3/ul (0.0-0.5); EOSINOPHILS % 1.2 % (0.0-7.0); HEMATOCRIT 39.3 % (37.0-47.0); HEMOGLOBIN 12.6 g/dl (12.0-16.0); LYMPHOCYTES # 3.1 10^3/ul (0.8-2.9); LYMPHOCYTES % 42.6 % (15.0-51.0); MEAN CORPUSCULAR HEMOGLOBIN 28.6 pg (29.0-33.0); MEAN CORPUSCULAR HGB CONC 32.1 g/dl (32.0-37.0); MEAN CORPUSCULAR VOLUME 89.3 fl (82.0-101.0); MEAN PLATELET VOLUME 9.6 fl (7.4-10.4); MONOCYTE # 0.7 10^3/ul (0.3-0.9); MONOCYTES % 9.7 % (0.0-11.0); NEUTROPHIL # 3.3 10^3/ul (1.6-7.5); NEUTROPHILS % 45.2 % (39.0-77.0); PLATELET COUNT 288 10^3/UL (140-415); RED CELL DISTRIBUTION WIDTH 12.1 % (11.5-14.5); WHITE BLOOD COUNT 7.3 10^3/ul (4.8-10.8)
[2017-08-25] MEDS: PANTOPRAZOLE (EC) 40 MG TAB PO SCH ×2 (06:02→17:58)
[2017-08-25 06:27] LABS: CALCIUM 8.8 mg/dl (8.4-10.2); CREATININE 0.88 mg/dl (0.44-1.00); POTASSIUM 4.3 mmol/L (3.5-5.1)
[2017-08-25 07:28] VITALS: BP 122/75; RESP 16
[2017-08-25] MEDS: AMOXICILLIN/CLAV 875 MG TAB PO SCH ×2 (08:47→20:53)
[2017-08-25] MEDS: ENALAPRIL 20 MG TAB PO SCH (08:47)
--- NOTE | 2017-08-25 11:50 | PN ---
Date/Time of Note Date/Time of Note DATE: 08/25/17 TIME: 11:48 Assessment/Plan VTE Prophylaxis VTE Prophylaxis Intervention: SCD's Lines/Catheters IV [facility]ter Type (from [facility]): Saline Lock Assessment/Plan Chief Complaint/Hosp Course Assessment/Plan: 76 yo F presented with chest pain found to have R lung mass, with possible postobstructive pneumonia as well. 1. lung mass: Per pulmonary team, this likely represents a right-sided perihilar lung mass with associated mediastinal and hilar adenopathy--c/w primary bronchogenic cancer. Radiographically T3(or3)N2 for now. - Follow-up pulm consult for bronch v other tissue sampling -for possible bronchoscopy in the next 24 hours. -Continue pain control medications and cough medicines as needed - cont home meds - general diet -Continue Augmentin 2. High cholesterol: Continue Lipitor Problems: Subjective 24 Hr Interval Summary Free Text/Dictation Seen by pulmonary team yesterday, no acute events overnight. Not able to get bronchoscopy performed today. Exam/Review of Systems Vital Signs Vitals Vital Signs Date Time Temp Pulse Resp B/P Pulse Ox O2 Delivery O2 Flow Rate FiO2 08/25/17 08:26 72 18 96 21 08/25/17 07:28 97.4 122/75 08/25/17 07:27 Nasal Cannula 08/22/17 20:22 2.0 Intake and Output 08/24/17 08/24/17 08/25/17 15:00 23:00 07:00 Intake Total 1460 ml 1040 ml Output Total 1300 ml Balance 1460 ml -260 ml Exam General: obese female laying in bed in no acute distress HEENT: Atraumatic, normocephalic. The pupils are equal, round and reactive. Extraocular motor are intact Neck: Supple with full range of motion. No rigidity or meningismus Chest: Nontender Lungs: Coarse breath sounds bilaterally, no use of accessory respiratory muscles Heart: Normal S1-S2, Regular rhythm and rate. No overt murmurs appreciated Abdomen: Soft , nontender, nondistended, bowel sounds are present. No guarding no rebound tenderness Extremities: Normal to inspection, no edema no cyanosis Neurologic: Normal mental status, speech normal, cranial nerves II through XII are intact, motor and sensory are intact, no focal weakness Results Result Diagram: 08/25/17 0500 08/25/17 0521 Results 24 hrs Laboratory Tests Test 08/25/17 05:00 08/25/17 05:21 White Blood Count 7.3 # Red Blood Count 4.40 Hemoglobin 12.6 Hematocrit 39.3 Mean Corpuscular Volume 89.3 Mean Corpuscular Hemoglobin 28.6 L Mean Corpuscular Hemoglobin Concent 32.1 Red Cell Distribution Width 12.1 Platelet Count 288 Mean Platelet Volume 9.6 Neutrophils % 45.2 Lymphocytes % 42.6 Monocytes % 9.7 Eosinophils % 1.2 Basophils % 0.7 Nucleated Red Blood Cells % 0.0 Neutrophils # 3.3 Lymphocytes # 3.1 H Monocytes # 0.7 Eosinophils # 0.1 Basophils # 0.1 Nucleated Red Blood Cells # 0.0 Sodium Level 137 Potassium Level 4.3 Chloride Level 102 Carbon Dioxide Level 27 Anion Gap 12 Blood Urea Nitrogen 14 Creatinine 0.88 Glucose Level 102 Calcium Level 8.8 Medications Medications Current Medications Carvedilol (Coreg) 3.125 mg BID PO Last administered on 08/25/17 08:47; Admin Dose 3.125 MG; Start 08/22/17 at 00:30 Enalapril Maleate (Vasotec) 20 mg DAILY PO Last administered on 08/25/17 08: 47; Admin Dose 20 MG; Start 08/22/17 at 09:00 Pantoprazole (Protonix Tab) 40 mg BID@06,18 PO Last administered on 08/25/17 06:02; Admin Dose 40 MG; Start 08/22/17 at 01:00 Atorvastatin Calcium (Lipitor) 10 mg QHS PO Last administered on 08/24/17 20: 48; Admin Dose 10 MG; Start 08/22/17 at 21:00 Ondansetron HCl (Zofran Inj) 4 mg Q6H PRN IV NAUSEA AND/OR VOMITING; Start 08/22/17 at 00:30 Nitroglycerin (Nitroglycerin (Sl Tab) 0.4 Mg) 1 tab Q5M PRN SL CHEST PAIN; Start 08/22/17 at 00:30 Morphine Sulfate (morphine) 2 mg Q4H PRN IV PAIN LEVEL 7-10; Start 08/22/17 at 00:30 Docusate Sodium (Colace) 100 mg Q12H PRN PO CONSTIPATION; Start 08/22/17 at 00: 30 Bisacodyl (Dulcolax) 5 mg DAILY PRN PO CONSTIPATION; Start 08/22/17 at 00:30 Amoxicillin/ Clavulanate Potassium (Augmentin) 875 mg BID PO Last administered on 08/25/17t 08:47; Admin Dose 875 MG; Start 08/22/17 at 21:00; Stop 08/29/17 at 20:59 ALANNA TAM Aug 25, 2017 11:50
--- NOTE | 2017-08-25 12:13 | CONS ---
Date/Time of Note Date/Time of Note DATE: 08/25/17 TIME: 12:11 Assessment/Plan Assessment/Plan Additional Assessment/Plan Assessment and recommendations; 1. Patient admitted with chest pain discovered to have right perihilar mass which is concerning for underlying malignant neoplasm. Next Continue current treatment. Patient scheduled for bronchoscopy on the of this month. This was the earliest overtime available for the procedure. Procedure were discussed with the family and they are agreeable. Meanwhile continue current supportive care. Consultation Date/Type/Reason Admit Date/Time Aug 21, 2017 at 20:35 Type of Consultation: Pulmonary 24 HR Interval Summary Free Text/Dictation Patient's condition is stable. Denies any shortness of breath, chest pain, sputum production or hemoptysis. General exam; elderly woman, awake alert, currently in no distress. Exam/Review of Systems Vital Signs Vitals Vital Signs Date Time Temp Pulse Resp B/P Pulse Ox O2 Delivery O2 Flow Rate FiO2 08/25/17 08:26 72 18 96 21 08/25/17 07:28 97.4 122/75 08/25/17 07:27 Nasal Cannula 08/22/17 20:22 2.0 Intake and Output 08/24/17 08/24/17 08/25/17 15:00 23:00 07:00 Intake Total 1460 ml 1040 ml Output Total 1300 ml Balance 1460 ml -260 ml Exam HEENT exam; supple neck, no JVD. No lymphadenopathy. Midline trachea. No thyromegaly. Patient is edentulous. Pupils are small bilaterally. Chest exam; clear to auscultation. S1-S2 audible, no murmurs. Regular rhythm. Abdomen exam; soft, nontender. No organomegaly. Bowel sounds audible. Extremity exam; no peripheral edema. No clubbing. SIGN WIRER exam; no focal deficit. Results Result Diagram: 08/25/17 0500 08/25/17 0521 Results 24 hrs Laboratory Tests Test 08/25/17 05:00 08/25/17 05:21 White Blood Count 7.3 # Red Blood Count 4.40 Hemoglobin 12.6 Hematocrit 39.3 Mean Corpuscular Volume 89.3 Mean Corpuscular Hemoglobin 28.6 L Mean Corpuscular Hemoglobin Concent 32.1 Red Cell Distribution Width 12.1 Platelet Count 288 Mean Platelet Volume 9.6 Neutrophils % 45.2 Lymphocytes % 42.6 Monocytes % 9.7 Eosinophils % 1.2 Basophils % 0.7 Nucleated Red Blood Cells % 0.0 Neutrophils # 3.3 Lymphocytes # 3.1 H Monocytes # 0.7 Eosinophils # 0.1 Basophils # 0.1 Nucleated Red Blood Cells # 0.0 Sodium Level 137 Potassium Level 4.3 Chloride Level 102 Carbon Dioxide Level 27 Anion Gap 12 Blood Urea Nitrogen 14 Creatinine 0.88 Glucose Level 102 Calcium Level 8.8 Medications Medications Current Medications Carvedilol (Coreg) 3.125 mg BID PO Last administered on 08/25/17 08:47; Admin Dose 3.125 MG; Start 08/22/17 at 00:30 Enalapril Maleate (Vasotec) 20 mg DAILY PO Last administered on 08/25/17 08: 47; Admin Dose 20 MG; Start 08/22/17 at 09:00 Pantoprazole (Protonix Tab) 40 mg BID@06,18 PO Last administered on 08/25/17 06:02; Admin Dose 40 MG; Start 08/22/17 at 01:00 Atorvastatin Calcium (Lipitor) 10 mg QHS PO Last administered on 08/24/17 20: 48; Admin Dose 10 MG; Start 08/22/17 at 21:00 Ondansetron HCl (Zofran Inj) 4 mg Q6H PRN IV NAUSEA AND/OR VOMITING; Start 08/22/17 at 00:30 Nitroglycerin (Nitroglycerin (Sl Tab) 0.4 Mg) 1 tab Q5M PRN SL CHEST PAIN; Start 08/22/17 at 00:30 Morphine Sulfate (morphine) 2 mg Q4H PRN IV PAIN LEVEL 7-10; Start 08/22/17 at 00:30 Docusate Sodium (Colace) 100 mg Q12H PRN PO CONSTIPATION; Start 08/22/17 at 00: 30 Bisacodyl (Dulcolax) 5 mg DAILY PRN PO CONSTIPATION; Start 08/22/17 at 00:30 Amoxicillin/ Clavulanate Potassium (Augmentin) 875 mg BID PO Last administered on 08/25/17 08:47; Admin Dose 875 MG; Start 08/22/17 at 21:00; Stop 08/29/17 at 20:59 ALICIA JACOBSON Aug 25, 2017 12:13
[2017-08-25 13:33] VITALS: BP 107/70; RESP 18
[2017-08-25 20:26] VITALS: BP 124/65; RESP 18
[2017-08-25] MEDS: ATORVASTATIN 10 MG TAB PO SCH (20:53)
[2017-08-26] MEDS: ALBUTEROL/IPRATROPIUM (NEB) 3 ML AMP HHN SCH ×6 (00:33→21:42)
[2017-08-26 02:00] VITALS: BP 121/69; RESP 18
[2017-08-26 06:09] LABS: BASOPHIL # 0.1 10^3/ul (0.0-0.1); EOSINOPHILS # 0.2 10^3/ul (0.0-0.5); EOSINOPHILS % 2.3 % (0.0-7.0); HEMATOCRIT 38.9 % (37.0-47.0); HEMOGLOBIN 12.5 g/dl (12.0-16.0); LYMPHOCYTES # 3.1 10^3/ul (0.8-2.9); LYMPHOCYTES % 42.2 % (15.0-51.0); MEAN CORPUSCULAR HEMOGLOBIN 28.6 pg (29.0-33.0); MEAN CORPUSCULAR HGB CONC 32.1 g/dl (32.0-37.0); MEAN PLATELET VOLUME 9.8 fl (7.4-10.4); MONOCYTE # 0.6 10^3/ul (0.3-0.9); MONOCYTES % 8.6 % (0.0-11.0); NEUTROPHIL # 3.3 10^3/ul (1.6-7.5); NEUTROPHILS % 45.1 % (39.0-77.0); PLATELET COUNT 278 10^3/UL (140-415); RED BLOOD COUNT 4.37 10^6/ul (4.20-5.40); WHITE BLOOD COUNT 7.3 10^3/ul (4.8-10.8)
[2017-08-26] MEDS: PANTOPRAZOLE (EC) 40 MG TAB PO SCH ×2 (06:19→18:03)
[2017-08-26 06:28] LABS: CALCIUM 8.9 mg/dl (8.4-10.2); CREATININE 0.92 mg/dl (0.44-1.00); POTASSIUM 4.9 mmol/L (3.5-5.1)
[2017-08-26 08:07] VITALS: BP 112/70; RESP 17
[2017-08-26] MEDS: AMOXICILLIN/CLAV 875 MG TAB PO SCH ×2 (09:34→20:34)
[2017-08-26] MEDS: ENALAPRIL 20 MG TAB PO SCH (09:35)
--- NOTE | 2017-08-26 10:26 | CONS ---
Date/Time of Note Date/Time of Note DATE: 08/26/17 TIME: 10:26 Consultation Date/Type/Reason Admit Date/Time Aug 21, 2017 at 20:35 Type of Consultation: Pulmonary 24 HR Interval Summary Free Text/Dictation dictated [id number] Exam/Review of Systems Vital Signs Vitals Vital Signs Date Time Temp Pulse Resp B/P Pulse Ox O2 Delivery O2 Flow Rate FiO2 08/26/17 08:35 86 18 96 21 08/26/17 08:07 98.5 112/70 08/25/17 23:00 Nasal Cannula 08/22/17 20:22 2.0 Intake and Output 08/25/17 08/25/17 08/26/17 15:00 23:00 07:00 Intake Total 1380 ml 800 ml Output Total 200 ml Balance 1380 ml 600 ml Results Result Diagram: 08/26/17 0534 08/26/17 0534 Results 24 hrs Laboratory Tests Test 08/26/17 05:34 White Blood Count 7.3 Red Blood Count 4.37 Hemoglobin 12.5 Hematocrit 38.9 Mean Corpuscular Volume 89.0 Mean Corpuscular Hemoglobin 28.6 L Mean Corpuscular Hemoglobin Concent 32.1 Red Cell Distribution Width 12.0 Platelet Count 278 Mean Platelet Volume 9.8 Neutrophils % 45.1 Lymphocytes % 42.2 Monocytes % 8.6 Eosinophils % 2.3 Basophils % 1.0 Nucleated Red Blood Cells % 0.0 Neutrophils # 3.3 Lymphocytes # 3.1 H Monocytes # 0.6 Eosinophils # 0.2 Basophils # 0.1 Nucleated Red Blood Cells # 0.0 Sodium Level 137 Potassium Level 4.9 Chloride Level 100 Carbon Dioxide Level 30 Anion Gap 12 Blood Urea Nitrogen 14 Creatinine 0.92 Glucose Level 97 Calcium Level 8.9 Medications Medications Current Medications Carvedilol (Coreg) 3.125 mg BID PO Last administered on 08/26/17 09:35; Admin Dose 3.125 MG; Start 08/22/17 at 00:30 Enalapril Maleate (Vasotec) 20 mg DAILY PO Last administered on 08/26/17 09: 35; Admin Dose 20 MG; Start 08/22/17 at 09:00 Pantoprazole (Protonix Tab) 40 mg BID@06,18 PO Last administered on 08/26/17 06:19; Admin Dose 40 MG; Start 08/22/17 at 01:00 Atorvastatin Calcium (Lipitor) 10 mg QHS PO Last administered on 08/25/17 20: 53; Admin Dose 10 MG; Start 08/22/17 at 21:00 Ondansetron HCl (Zofran Inj) 4 mg Q6H PRN IV NAUSEA AND/OR VOMITING; Start 08/22/17 at 00:30 Nitroglycerin (Nitroglycerin (Sl Tab) 0.4 Mg) 1 tab Q5M PRN SL CHEST PAIN; Start 08/22/17 at 00:30 Morphine Sulfate (morphine) 2 mg Q4H PRN IV PAIN LEVEL 7-10; Start 08/22/17 at 00:30 Docusate Sodium (Colace) 100 mg Q12H PRN PO CONSTIPATION; Start 08/22/17 at 00: 30 Bisacodyl (Dulcolax) 5 mg DAILY PRN PO CONSTIPATION; Start 08/22/17 at 00:30 Amoxicillin/ Clavulanate Potassium (Augmentin) 875 mg BID PO Last administered on 08/26/17 09:34; Admin Dose 875 MG; Start 08/22/17 at 21:00; Stop 08/29/17 at 20:59 ALICIA JACOBSON Aug 26, 2017 10:26
--- NOTE | 2017-08-26 11:24 | PN ---
Date/Time of Note Date/Time of Note DATE: 08/26/17 TIME: 11:14 Assessment/Plan VTE Prophylaxis VTE Prophylaxis Intervention: SCD's Lines/Catheters IV Catheter Type (from Nrs): Saline Lock Assessment/Plan Chief Complaint/Hosp Course Assessment/Plan: 76 yo F presented with chest pain found to have R lung mass, with possible postobstructive pneumonia as well. 1. lung mass: Per pulmonary team, this likely represents a right-sided perihilar lung mass with associated mediastinal and hilar adenopathy--c/w primary bronchogenic cancer. Radiographically T3(or3)N2 for now. - Follow-up pulm consult for bronch v other tissue sampling -for possible bronchoscopy in the next 24 hours. -Continue pain control medications and cough medicines as needed - cont home meds - general diet -Continue Augmentin 2. High cholesterol: Continue Lipitor Problems: Subjective 24 Hr Interval Summary Free Text/Dictation Patient not able to get bronchoscopy performed today, otherwise no acute events overnight. Exam/Review of Systems Vital Signs Vitals Vital Signs Date Time Temp Pulse Resp B/P Pulse Ox O2 Delivery O2 Flow Rate FiO2 08/26/17 08:35 86 18 96 21 08/26/17 08:07 98.5 112/70 08/25/17 23:00 Nasal Cannula 08/22/17 20:22 2.0 Intake and Output 08/25/17 08/25/17 08/26/17 15:00 23:00 07:00 Intake Total 1380 ml 800 ml Output Total 200 ml Balance 1380 ml 600 ml Exam General: obese female laying in bed in no acute distress HEENT: Atraumatic, normocephalic. The pupils are equal, round and reactive. Extraocular motor are intact Neck: Supple with full range of motion. No rigidity or meningismus Chest: Nontender Lungs: Coarse breath sounds bilaterally, no use of accessory respiratory muscles Heart: Normal S1-S2, Regular rhythm and rate. No overt murmurs appreciated Abdomen: Soft , nontender, nondistended, bowel sounds are present. No guarding no rebound tenderness Extremities: Normal to inspection, no edema no cyanosis Neurologic: Normal mental status, speech normal, cranial nerves II through XII are intact, motor and sensory are intact, no focal weakness Results Result Diagram: 08/26/17 0534 08/26/17 0534 Results 24 hrs Laboratory Tests Test 08/26/17 05:34 White Blood Count 7.3 Red Blood Count 4.37 Hemoglobin 12.5 Hematocrit 38.9 Mean Corpuscular Volume 89.0 Mean Corpuscular Hemoglobin 28.6 L Mean Corpuscular Hemoglobin Concent 32.1 Red Cell Distribution Width 12.0 Platelet Count 278 Mean Platelet Volume 9.8 Neutrophils % 45.1 Lymphocytes % 42.2 Monocytes % 8.6 Eosinophils % 2.3 Basophils % 1.0 Nucleated Red Blood Cells % 0.0 Neutrophils # 3.3 Lymphocytes # 3.1 H Monocytes # 0.6 Eosinophils # 0.2 Basophils # 0.1 Nucleated Red Blood Cells # 0.0 Sodium Level 137 Potassium Level 4.9 Chloride Level 100 Carbon Dioxide Level 30 Anion Gap 12 Blood Urea Nitrogen 14 Creatinine 0.92 Glucose Level 97 Calcium Level 8.9 Medications Medications Current Medications Carvedilol (Coreg) 3.125 mg BID PO Last administered on 08/26/17 09:35; Admin Dose 3.125 MG; Start 08/22/17 at 00:30 Enalapril Maleate (Vasotec) 20 mg DAILY PO Last administered on 08/26/17 09: 35; Admin Dose 20 MG; Start 08/22/17 at 09:00 Pantoprazole (Protonix Tab) 40 mg BID@06,18 PO Last administered on 08/26/17 06:19; Admin Dose 40 MG; Start 08/22/17 at 01:00 Atorvastatin Calcium (Lipitor) 10 mg QHS PO Last administered on 08/25/17 20: 53; Admin Dose 10 MG; Start 08/22/17 at 21:00 Ondansetron HCl (Zofran Inj) 4 mg Q6H PRN IV NAUSEA AND/OR VOMITING; Start 08/22/17 at 00:30 Nitroglycerin (Nitroglycerin (Sl Tab) 0.4 Mg) 1 tab Q5M PRN SL CHEST PAIN; Start 08/22/17 at 00:30 Morphine Sulfate (morphine) 2 mg Q4H PRN IV PAIN LEVEL 7-10; Start 08/22/17 at 00:30 Docusate Sodium (Colace) 100 mg Q12H PRN PO CONSTIPATION; Start 08/22/17 at 00: 30 Bisacodyl (Dulcolax) 5 mg DAILY PRN PO CONSTIPATION; Start 08/22/17 at 00:30 Amoxicillin/ Clavulanate Potassium (Augmentin) 875 mg BID PO Last administered on 08/26/17t 09:34; Admin Dose 875 MG; Start 08/22/17 at 21:00; Stop 08/29/17 at 20:59 ALANNA TAM Aug 26, 2017 11:24
--- NOTE | 2017-08-26 11:56 | PN ---
DATE: 08/26/2017 PULMONARY PROGRESS NOTE The patient's condition is stable. Denies any shortness of breath, chest pain, wheezing, cough, spu ramandeep production, fever, chills. PHYSICAL EXAMINATION: GENERAL: Elderly awake, alert, currently in no distress. VITAL SIGNS: Temperature 98.8 degrees Fahrenheit, respiratory rate is 18 per minute, heart rate 88 per minute, blood pressure is 112/70, O2 sat 96% on room air. HEENT: Supple neck, no JVD, no lymphadenopathy, midline trachea, no thyromegaly. Pharynx clear, no neck bruits. Pupils are small bilaterally. CHEST: Clear to auscultation. HEART: S1, S2 audible. No murmurs, regular rhythm. ABDOMEN: Soft, protuberant, nontender, bowel sounds audible, no organomegaly. EXTREMITIES: No edema. Pulses 1+ bilaterally. CENTRAL NERVOUS SYSTEM: No focal deficits. LABORATORY DATA: Today, white count is 7.3, hemoglobin 12.5, platelet count of 278. Glucose 100, s odium 137, potassium 4.9, BUN 14, creatinine 0.9. MEDICATIONS: The patient is currently on: 1. DuoNeb. 2. Augmentin. 3. Lipitor. 4. Colace. 5. Morphine. 6. Protonix. All doses were reviewed. ASSESSMENT AND PLAN: Patient admitted with chest pain, discovered to have right perihilar mass whic h appears malignant until proven otherwise. RECOMMENDATIONS: The patient is scheduled for bronchoscopy tomorrow morning. Procedure was discuss ed with her in detail, she has agreed to it. Dictated By: ALICIA REZA/JACQUI Conf#: [id number] DID#: [id number]
[2017-08-26 13:49] VITALS: BP 96/67; RESP 18
[2017-08-26 19:21] VITALS: BP 120/73; RESP 20
[2017-08-26] MEDS: ATORVASTATIN 10 MG TAB PO SCH (20:33)
[2017-08-27] VITALS (11 sets, daily range): BP systolic 111–151; BP diastolic 69–82; PULSE 80–92; RESP 18–27
[2017-08-27] MEDS: ALBUTEROL/IPRATROPIUM (NEB) 3 ML AMP HHN SCH ×6 (02:54→20:13)
[2017-08-27] MEDS: PANTOPRAZOLE (EC) 40 MG TAB PO SCH ×2 (05:35→18:22)
[2017-08-27 05:44] LABS: BASOPHIL # 0.1 10^3/ul (0.0-0.1); EOSINOPHILS # 0.2 10^3/ul (0.0-0.5); EOSINOPHILS % 3.5 % (0.0-7.0); HEMATOCRIT 39.9 % (37.0-47.0); HEMOGLOBIN 12.7 g/dl (12.0-16.0); LYMPHOCYTES # 2.7 10^3/ul (0.8-2.9); LYMPHOCYTES % 39.3 % (15.0-51.0); MEAN CORPUSCULAR HEMOGLOBIN 28.1 pg (29.0-33.0); MEAN CORPUSCULAR HGB CONC 31.8 g/dl (32.0-37.0); MEAN CORPUSCULAR VOLUME 88.3 fl (82.0-101.0); MEAN PLATELET VOLUME 9.7 fl (7.4-10.4); MONOCYTE # 0.6 10^3/ul (0.3-0.9); NEUTROPHIL # 3.2 10^3/ul (1.6-7.5); PLATELET COUNT 284 10^3/UL (140-415); RED BLOOD COUNT 4.52 10^6/ul (4.20-5.40); RED CELL DISTRIBUTION WIDTH 11.9 % (11.5-14.5); WHITE BLOOD COUNT 6.9 10^3/ul (4.8-10.8)
[2017-08-27 06:33] LABS: CALCIUM 9.2 mg/dl (8.4-10.2); CREATININE 0.84 mg/dl (0.44-1.00)
[2017-08-27] MEDS: ENALAPRIL 20 MG TAB PO SCH (09:00)
--- NOTE | 2017-08-27 09:45 | CONS ---
Date/Time of Note Date/Time of Note DATE: 08/27/17 TIME: 09:43 Assessment/Plan Assessment/Plan Additional Assessment/Plan Assessment and recommendations; 1. Patient admitted with nonspecific chest pain discovered to have right perihilar mass which is appearing malignant upon CT chest evaluation. Patient scheduled for bronchoscopy shortly. Procedure was discussed with her in detail. Patient has agreed for the procedure and signed the consent form. Consultation Date/Type/Reason Admit Date/Time Aug 21, 2017 at 20:35 Type of Consultation: Pulmonary 24 HR Interval Summary Free Text/Dictation Patient's condition is stable. Remains awake alert. Denies any shortness, chest pain, coughing or wheezing. Denies any sputum production or hemoptysis. Next General exam; elderly woman, awake alert, currently in no distress. Exam/Review of Systems Vital Signs Vitals Vital Signs Date Time Temp Pulse Resp B/P Pulse Ox O2 Delivery O2 Flow Rate FiO2 08/27/17 08:41 95 18 98 21 08/27/17 07:38 97.9 124/75 08/26/17 20:00 Nasal Cannula Intake and Output 08/26/17 08/26/17 08/27/17 15:00 23:00 07:00 Intake Total 920 ml 440 ml Output Total 1000 ml Balance -80 ml 440 ml Exam HEENT exam; supple neck, no JVD. No lymphadenopathy. Midline trachea. No thyromegaly. Pharynx is clear. Patient is edentulous. Chest exam; clear to auscultation. S1-S2 audible, no murmurs. Regular rhythm. Abdomen exam; soft, protuberant. No organomegaly. Bowel sounds audible. Extremity exam; no peripheral edema. BUSINESS TRAVEL CONSULTANT exam; no focal deficit. Results Result Diagram: 08/27/1712 08/27/17511 Results 24 hrs Laboratory Tests Test 08/27/17 05:12 White Blood Count 6.9 Red Blood Count 4.52 Hemoglobin 12.7 Hematocrit 39.9 Mean Corpuscular Volume 88.3 Mean Corpuscular Hemoglobin 28.1 L Mean Corpuscular Hemoglobin Concent 31.8 L Red Cell Distribution Width 11.9 Platelet Count 284 Mean Platelet Volume 9.7 Neutrophils % 46.0 Lymphocytes % 39.3 Monocytes % 9.0 Eosinophils % 3.5 Basophils % 1.0 Nucleated Red Blood Cells % 0.0 Neutrophils # 3.2 Lymphocytes # 2.7 Monocytes # 0.6 Eosinophils # 0.2 Basophils # 0.1 Nucleated Red Blood Cells # 0.0 Sodium Level 135 Potassium Level 5.0 Chloride Level 98 Carbon Dioxide Level 29 Anion Gap 13 Blood Urea Nitrogen 18 Creatinine 0.84 Glucose Level 106 Calcium Level 9.2 Medications Medications Current Medications Carvedilol (Coreg) 3.125 mg BID PO Last administered on 08/26/17 20:34; Admin Dose 3.125 MG; Start 08/22/17 at 00:30 Enalapril Maleate (Vasotec) 20 mg DAILY PO Last administered on 08/26/17 09: 35; Admin Dose 20 MG; Start 08/22/17 at 09:00 Pantoprazole (Protonix Tab) 40 mg BID@06,18 PO Last administered on 08/26/17 18:03; Admin Dose 40 MG; Start 08/22/17 at 01:00 Atorvastatin Calcium (Lipitor) 10 mg QHS PO Last administered on 08/26/17 20: 33; Admin Dose 10 MG; Start 08/22/17 at 21:00 Ondansetron HCl (Zofran Inj) 4 mg Q6H PRN IV NAUSEA AND/OR VOMITING; Start 08/22/17 at 00:30 Nitroglycerin (Nitroglycerin (Sl Tab) 0.4 Mg) 1 tab Q5M PRN SL CHEST PAIN; Start 08/22/17 at 00:30 Morphine Sulfate (morphine) 2 mg Q4H PRN IV PAIN LEVEL 7-10; Start 08/22/17 at 00:30 Docusate Sodium (Colace) 100 mg Q12H PRN PO CONSTIPATION; Start 08/22/17 at 00: 30 Bisacodyl (Dulcolax) 5 mg DAILY PRN PO CONSTIPATION; Start 08/22/17 at 00:30 Amoxicillin/ Clavulanate Potassium (Augmentin) 875 mg BID PO Last administered on 08/26/17 20:34; Admin Dose 875 MG; Start 08/22/17 at 21:00; Stop 08/29/17 at 20:59 ALICIA JACOBSON Aug 27, 2017 09:44
[2017-08-27] MEDS ORDERED: LIDOCAINE 1% (STERILE-PAK) 30 ML INJ ONE (10:10)
[2017-08-27] MEDS ORDERED: FENTAnyl 50 MCG/ML VIAL ONE (10:12)
[2017-08-27] MEDS ORDERED: ROCURONIUM 50 MG INJ ONE (10:12)
[2017-08-27] MEDS ORDERED: PROPOFOL 20 ML ONE (10:12)
--- NOTE | 2017-08-27 10:22 | PN ---
Date/Time of Note Date/Time of Note DATE: 08/27/17 TIME: 10:21 Assessment/Plan VTE Prophylaxis VTE Prophylaxis Intervention: SCD's Lines/Catheters IV [facility]): Saline Lock Assessment/Plan Chief Complaint/Hosp Course Assessment/Plan: 76 yo F presented with chest pain found to have R lung mass, with possible postobstructive pneumonia as well. 1. lung mass: Per pulmonary team, this likely represents a right-sided perihilar lung mass with associated mediastinal and hilar adenopathy--c/w primary bronchogenic cancer until proven otherwise (Radiographically T3(or3)N2 for now) - Follow-up pulm consult for bronch v other tissue sampling -for possible bronchoscopy in the next 24 hours. -Continue pain control medications and cough medicines as needed - cont home meds - general diet -Continue Augmentin 2. High cholesterol: Continue Lipitor Problems: Subjective 24 Hr Interval Summary Free Text/Dictation No acute events overnight, presently getting bronchoscopy performed. Exam/Review of Systems Vital Signs Vitals Vital Signs Date Time Temp Pulse Resp B/P Pulse Ox O2 Delivery O2 Flow Rate FiO2 08/27/17 08:41 95 18 98 21 08/27/17 07:38 97.9 124/75 08/26/17 20:00 Nasal Cannula Intake and Output 08/26/17 08/26/17 08/27/17 15:00 23:00 07:00 Intake Total 920 ml 440 ml Output Total 1000 ml Balance -80 ml 440 ml Exam PE: -Unable to be performed today because patient is downstairs getting procedure presently Results Result Diagram: 08/27/17 0512 08/27/17 0512 Results 24 hrs Laboratory Tests Test 08/27/17 05:12 White Blood Count 6.9 Red Blood Count 4.52 Hemoglobin 12.7 Hematocrit 39.9 Mean Corpuscular Volume 88.3 Mean Corpuscular Hemoglobin 28.1 L Mean Corpuscular Hemoglobin Concent 31.8 L Red Cell Distribution Width 11.9 Platelet Count 284 Mean Platelet Volume 9.7 Neutrophils % 46.0 Lymphocytes % 39.3 Monocytes % 9.0 Eosinophils % 3.5 Basophils % 1.0 Nucleated Red Blood Cells % 0.0 Neutrophils # 3.2 Lymphocytes # 2.7 Monocytes # 0.6 Eosinophils # 0.2 Basophils # 0.1 Nucleated Red Blood Cells # 0.0 Sodium Level 135 Potassium Level 5.0 Chloride Level 98 Carbon Dioxide Level 29 Anion Gap 13 Blood Urea Nitrogen 18 Creatinine 0.84 Glucose Level 106 Calcium Level 9.2 Medications Medications Current Medications Carvedilol (Coreg) 3.125 mg BID PO Last administered on 08/26/17 20:34; Admin Dose 3.125 MG; Start 08/22/17 at 00:30 Enalapril Maleate (Vasotec) 20 mg DAILY PO Last administered on 08/26/17 09: 35; Admin Dose 20 MG; Start 08/22/17 at 09:00 Pantoprazole (Protonix Tab) 40 mg BID@06,18 PO Last administered on 08/26/17 18:03; Admin Dose 40 MG; Start 08/22/17 at 01:00 Atorvastatin Calcium (Lipitor) 10 mg QHS PO Last administered on 08/26/17 20: 33; Admin Dose 10 MG; Start 08/22/17 at 21:00 Ondansetron HCl (Zofran Inj) 4 mg Q6H PRN IV NAUSEA AND/OR VOMITING; Start 08/22/17 at 00:30 Nitroglycerin (Nitroglycerin (Sl Tab) 0.4 Mg) 1 tab Q5M PRN SL CHEST PAIN; Start 08/22/17 at 00:30 Morphine Sulfate (morphine) 2 mg Q4H PRN IV PAIN LEVEL 7-10; Start 08/22/17 at 00:30 Docusate Sodium (Colace) 100 mg Q12H PRN PO CONSTIPATION; Start 08/22/17 at 00: 30 Bisacodyl (Dulcolax) 5 mg DAILY PRN PO CONSTIPATION; Start 08/22/17 at 00:30 Amoxicillin/ Clavulanate Potassium (Augmentin) 875 mg BID PO Last administered on 08/26/17 20:34; Admin Dose 875 MG; Start 08/22/17 at 21:00; Stop 08/29/17 at 20:59 ALANNA TAM Aug 27, 2017 10:22
[2017-08-27] MEDS ORDERED: LABETALOL HCL 20MG INJ ONE (10:39)
[2017-08-27] MEDS ORDERED: PHENYLephrine (100 MCG/ML) 5ML SYG ONE (10:44)
[2017-08-27] MEDS ORDERED: METOCLOPRAMIDE 10 MG INJ ONE (10:49)
[2017-08-27] MEDS ORDERED: ONDANSETRON 4 MG INJ ONE (10:49)
[2017-08-27] MEDS ORDERED: SUGAMMADEX SODIUM 200 MG/2 ML VIAL IV ONE (10:49)
[2017-08-27] MEDS ORDERED: DEXAMETHASONE 4 MG/ML 1 ML INJ ONE (10:49)
--- NOTE | 2017-08-27 11:04 | OPPN ---
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 Operation/Procedure Performed Patient was brought into the OR. Informed consent was obtained earlier. Patient was put under general anesthesia by the anesthesiologist. She was orally intubated. Bronchoscope was introduced via the endotracheal tube. Distal trachea was normal. Lissette was sharp and well defined. The scope was then introduced into the left mainstem bronchus with evaluation of the left upper lobe, lingula, superior segment of the lower lobe and lower lobes they were all normal except for mild anthracotic changes. Scope was then introduced into the right mainstem bronchus with evaluation of the right upper lobe which was normal followed by evaluation of bronchus intermedius with evaluation of the lower lobe which was partially occluded by tumor with complete occlusion of the middle lobe by tumor. Superior segment of right lower lobe was patent. Multiple endobronchial biopsies were performed followed by brushing and then finally by a washing. There was minimal bleeding at the biopsy site. The scope was then withdrawn. Patient tolerated the procedure very well with stable vital signs cardiac rhythm and O2 saturation. Start time was 10:37 AM finish time was 10:45 AM. Surgeon see signature line creative assistant Dr. Jacobson Anesthesia: general Estimated blood loss: minimal Transfusion Required none Specimen Right lower lobe biopsies, brushing, endobronchial washing. Grafts/Implants none Complications none ALICIA JACOBSON Aug 27, 2017 11:04
[2017-08-27] MEDS: AMOXICILLIN/CLAV 875 MG TAB PO SCH ×2 (13:09→21:42)
[2017-08-27] MEDS: ATORVASTATIN 10 MG TAB PO SCH (21:42)
[2017-08-28] MEDS: ALBUTEROL/IPRATROPIUM (NEB) 3 ML AMP HHN SCH ×6 (00:16→20:00)
[2017-08-28 02:31] VITALS: BP 125/68; RESP 18
[2017-08-28] MEDS: PANTOPRAZOLE (EC) 40 MG TAB PO SCH ×2 (05:50→17:50)
[2017-08-28 06:30] LABS: BASOPHILS % 0.1 % (0.0-2.0); HEMATOCRIT 39.7 % (37.0-47.0); HEMOGLOBIN 12.8 g/dl (12.0-16.0); LYMPHOCYTES # 1.8 10^3/ul (0.8-2.9); LYMPHOCYTES % 14.9 % (15.0-51.0); MEAN CORPUSCULAR HEMOGLOBIN 28.1 pg (29.0-33.0); MEAN CORPUSCULAR HGB CONC 32.2 g/dl (32.0-37.0); MEAN CORPUSCULAR VOLUME 87.3 fl (82.0-101.0); MONOCYTE # 0.7 10^3/ul (0.3-0.9); MONOCYTES % 5.8 % (0.0-11.0); NEUTROPHIL # 9.7 10^3/ul (1.6-7.5); NEUTROPHILS % 78.4 % (39.0-77.0); PLATELET COUNT 317 10^3/UL (140-415); RED BLOOD COUNT 4.55 10^6/ul (4.20-5.40); WHITE BLOOD COUNT 12.4 10^3/ul (4.8-10.8)
[2017-08-28 06:57] LABS: CALCIUM 9.1 mg/dl (8.4-10.2); CREATININE 0.77 mg/dl (0.44-1.00); POTASSIUM 4.9 mmol/L (3.5-5.1)
[2017-08-28 07:23] VITALS: BP 118/69; RESP 16
[2017-08-28] MEDS: AMOXICILLIN/CLAV 875 MG TAB PO SCH ×2 (09:58→21:25)
[2017-08-28] MEDS: ENALAPRIL 20 MG TAB PO SCH (09:58)
--- NOTE | 2017-08-28 10:37 | CONS ---
Date/Time of Note Date/Time of Note DATE: 08/28/17 TIME: 10:36 Consultation Date/Type/Reason Admit Date/Time Aug 21, 2017 at 20:35 Type of Consultation: Pulmonary 24 HR Interval Summary Free Text/Dictation [id number]. May dc home for out patient follow up. Exam/Review of Systems Vital Signs Vitals Vital Signs Date Time Temp Pulse Resp B/P Pulse Ox O2 Delivery O2 Flow Rate FiO2 08/28/17 07:52 98 20 95 21 08/28/17 07:23 98.6 118/69 08/27/17 16:49 Nasal Cannula 2.0 Intake and Output 08/27/17 08/27/17 08/28/17 14:59 22:59 06:59 Intake Total 100 ml 600 ml 700 ml Output Total 5 ml Balance 95 ml 600 ml 700 ml Results Result Diagram: 08/28/17 0505 08/28/17 0505 Results 24 hrs Laboratory Tests Test 08/28/17 05:05 White Blood Count 12.4 #H Red Blood Count 4.55 Hemoglobin 12.8 Hematocrit 39.7 Mean Corpuscular Volume 87.3 Mean Corpuscular Hemoglobin 28.1 L Mean Corpuscular Hemoglobin Concent 32.2 Red Cell Distribution Width 12.0 Platelet Count 317 Mean Platelet Volume 10.0 Neutrophils % 78.4 H Lymphocytes % 14.9 L Monocytes % 5.8 Eosinophils % 0.0 Basophils % 0.1 Nucleated Red Blood Cells % 0.0 Neutrophils # 9.7 H Lymphocytes # 1.8 Monocytes # 0.7 Eosinophils # 0.0 Basophils # 0.0 Nucleated Red Blood Cells # 0.0 Sodium Level 135 Potassium Level 4.9 Chloride Level 99 Carbon Dioxide Level 25 Anion Gap 16 Blood Urea Nitrogen 15 Creatinine 0.77 Glucose Level 117 Calcium Level 9.1 Medications Medications Current Medications Carvedilol (Coreg) 3.125 mg BID PO Last administered on 08/28/17 09:58; Admin Dose 3.125 MG; Start 08/22/17 at 00:30 Enalapril Maleate (Vasotec) 20 mg DAILY PO Last administered on 08/28/17 09: 58; Admin Dose 20 MG; Start 08/22/17 at 09:00 Pantoprazole (Protonix Tab) 40 mg BID@06,18 PO Last administered on 08/28/17 05:50; Admin Dose 40 MG; Start 08/22/17 at 01:00 Atorvastatin Calcium (Lipitor) 10 mg QHS PO Last administered on 08/27/17 21: 42; Admin Dose 10 MG; Start 08/22/17 at 21:00 Ondansetron HCl (Zofran Inj) 4 mg Q6H PRN IV NAUSEA AND/OR VOMITING; Start 08/22/17 at 00:30 Nitroglycerin (Nitroglycerin (Sl Tab) 0.4 Mg) 1 tab Q5M PRN SL CHEST PAIN; Start 08/22/17 at 00:30 Morphine Sulfate (morphine) 2 mg Q4H PRN IV PAIN LEVEL 7-10; Start 08/22/17 at 00:30 Docusate Sodium (Colace) 100 mg Q12H PRN PO CONSTIPATION; Start 08/22/17 at 00: 30 Bisacodyl (Dulcolax) 5 mg DAILY PRN PO CONSTIPATION; Start 08/22/17 at 00:30 Amoxicillin/ Clavulanate Potassium (Augmentin) 875 mg BID PO Last administered on 08/28/17 09:58; Admin Dose 875 MG; Start 08/22/17 at 21:00; Stop 08/29/17 at 20:59 ALICIA JACOBSON Aug 28, 2017 10:37
[2017-08-28] MEDS ORDERED: CEPASTAT LOZENGE MT PRN (11:30)
--- NOTE | 2017-08-28 11:31 | PN ---
Date/Time of Note Date/Time of Note DATE: 08/28/17 TIME: 11:23 Assessment/Plan VTE Prophylaxis VTE Prophylaxis Intervention: SCD's Lines/Catheters IV Catheter Type (from Nrs): Peripheral IV Assessment/Plan Chief Complaint/Hosp Course Assessment/Plan: 76 yo F presented with chest pain found to have R lung mass, with possible postobstructive pneumonia as well. 1. lung mass: Per pulmonary team, this likely represents a right-sided perihilar lung mass with associated mediastinal and hilar adenopathy--c/w primary bronchogenic cancer until proven otherwise (Radiographically T3(or3)N2 for now) -Status post bronchoscopy yesterday, follow final biopsy results, will go ahead and get hematology oncology consult as well given likely bronchogenic cancer -Continue pain control medications and cough medicines as needed - cont home meds - general diet -Continue Augmentin 2. High cholesterol: Continue Lipitor Problems: Subjective 24 Hr Interval Summary Free Text/Dictation Patient had bronchoscopy performed yesterday, complaining of some mild hemoptysis, otherwise no acute events overnight. Exam/Review of Systems Vital Signs Vitals Vital Signs Date Time Temp Pulse Resp B/P Pulse Ox O2 Delivery O2 Flow Rate FiO2 08/28/17 07:52 98 20 95 21 08/28/17 07:23 98.6 118/69 08/27/17 16:49 Nasal Cannula 2.0 Intake and Output 08/27/17 08/27/17 08/28/17 15:00 23:00 07:00 Intake Total 100 ml 600 ml 700 ml Output Total 5 ml Balance 95 ml 600 ml 700 ml Exam General: obese female laying in bed in no acute distress HEENT: Atraumatic, normocephalic. The pupils are equal, round and reactive. Extraocular motor are intact Neck: Supple with full range of motion. No rigidity or meningismus Chest: Nontender Lungs: Coarse breath sounds bilaterally, no use of accessory respiratory muscles Heart: Normal S1-S2, Regular rhythm and rate. No overt murmurs appreciated Abdomen: Soft , nontender, nondistended, bowel sounds are present. No guarding no rebound tenderness Extremities: Normal to inspection, no edema no cyanosis Neurologic: Normal mental status, speech normal, cranial nerves II through XII are intact, motor and sensory are intact, no focal weakness Results Result Diagram: 08/28/17 0505 08/28/17 0505 Results 24 hrs Laboratory Tests Test 08/28/17 05:05 White Blood Count 12.4 #H Red Blood Count 4.55 Hemoglobin 12.8 Hematocrit 39.7 Mean Corpuscular Volume 87.3 Mean Corpuscular Hemoglobin 28.1 L Mean Corpuscular Hemoglobin Concent 32.2 Red Cell Distribution Width 12.0 Platelet Count 317 Mean Platelet Volume 10.0 Neutrophils % 78.4 H Lymphocytes % 14.9 L Monocytes % 5.8 Eosinophils % 0.0 Basophils % 0.1 Nucleated Red Blood Cells % 0.0 Neutrophils # 9.7 H Lymphocytes # 1.8 Monocytes # 0.7 Eosinophils # 0.0 Basophils # 0.0 Nucleated Red Blood Cells # 0.0 Sodium Level 135 Potassium Level 4.9 Chloride Level 99 Carbon Dioxide Level 25 Anion Gap 16 Blood Urea Nitrogen 15 Creatinine 0.77 Glucose Level 117 Calcium Level 9.1 Medications Medications Current Medications Carvedilol (Coreg) 3.125 mg BID PO Last administered on 08/28/17 09:58; Admin Dose 3.125 MG; Start 08/22/17 at 00:30 Enalapril Maleate (Vasotec) 20 mg DAILY PO Last administered on 08/28/17 09: 58; Admin Dose 20 MG; Start 08/22/17 at 09:00 Pantoprazole (Protonix Tab) 40 mg BID@06,18 PO Last administered on 08/28/17 05:50; Admin Dose 40 MG; Start 08/22/17 at 01:00 Atorvastatin Calcium (Lipitor) 10 mg QHS PO Last administered on 08/27/17 21: 42; Admin Dose 10 MG; Start 08/22/17 at 21:00 Ondansetron HCl (Zofran Inj) 4 mg Q6H PRN IV NAUSEA AND/OR VOMITING; Start 08/22/17 at 00:30 Nitroglycerin (Nitroglycerin (Sl Tab) 0.4 Mg) 1 tab Q5M PRN SL CHEST PAIN; Start 08/22/17 at 00:30 Morphine Sulfate (morphine) 2 mg Q4H PRN IV PAIN LEVEL 7-10; Start 08/22/17 at 00:30 Docusate Sodium (Colace) 100 mg Q12H PRN PO CONSTIPATION; Start 08/22/17 at 00: 30 Bisacodyl (Dulcolax) 5 mg DAILY PRN PO CONSTIPATION; Start 08/22/17 at 00:30 Amoxicillin/ Clavulanate Potassium (Augmentin) 875 mg BID PO Last administered on 08/28/17t 09:58; Admin Dose 875 MG; Start 08/22/17 at 21:00; Stop 08/29/17 at 20:59 Guaifenesin (Robitussin Liquid Cup) 200 mg Q4H PRN PO COUGH; Start 08/28/17 at 11:30 Phenol (Cepastat Lozenge) 1 lozenge Q1H PRN MT COUGH; Start 08/28/17 at 11:30 ALANNA TAM Aug 28, 2017 11:31
--- NOTE | 2017-08-28 14:28 | PN ---
DATE: 08/28/2017 HISTORY OF PRESENT ILLNESS: The patient's condition is stable. REVIEW OF SYSTEMS: The patient denies any shortness of breath, chest pain, hemoptysis. PHYSICAL EXAMINATION: GENERAL: Elderly woman, awake, alert, currently in no distress. VITAL SIGNS: Temperature 98.8 degrees Fahrenheit, blood pressure is 118/68, O2 sat 95% on room air, heart rate 98 per minute, temperature 98.5 degrees Fahrenheit, respiratory rate is 18 per minute. HEENT: Supple neck, no JVD, no lymphadenopathy, midline trachea, no thyromegaly. Pharynx clear, no neck bruits. Patient is edentulous. CHEST: Clear to auscultation. HEART: S1, S2 audible. No murmurs, regular rhythm. ABDOMEN: Soft, protuberant. Bowel sounds audible, nontender. EXTREMITIES: No edema. NEUROLOGIC: No focal deficit. LABORATORY DATA: Today, white count 12.4, hemoglobin 12.8, platelet count of 317. Sodium 135, pota ssium 4.9, chloride 99, bicarbonate 25. BUN 15, creatinine 0.7. MEDICATIONS: Reviewed. ASSESSMENT: 1. Patient admitted for nonspecific chest pain, discovered to have a right perihilar mass, status p ost bronchoscopy yesterday with findings which are indicated for extensive underlying lung malignanc y, status post biopsy. RECOMMENDATIONS: Continue current supportive care, awaiting biopsy results. The patient can be dis charged home to be followed up on an outpatient basis. Dictated By: ALICIA REZA/JACQUI Conf#: [id number] DID#: [id number]
[2017-08-28 14:57] VITALS: BP 123/76; RESP 16
--- NOTE | 2017-08-28 16:35 | CONS ---
Date/Time of Note Date/Time of Note DATE: 08/28/17 TIME: 16:21 Assessment/Plan Assessment/Plan Chief Complaint/Hosp Course Pleuritic chest pain, cough, and shortness of breath. Problems: Additional Assessment/Plan 76 year old with 40 pack years of smoking, quit 25 years ago, presented to hospital with right anterior chest pain and shortness of breath. 1. She has a large, ill defined mass int the right hilum suspicious for bronchogenic carcinoma. CT angio was done finding a right infrahilar mass with extrinsic compression of the right lower lobar pulmonary artery and occlusion of the superior segment right lower lobe bronchus with postobstructive consolidation. There is associated right hilar adenopathy. Staging did not reveal any distant metastases. Bronchoscopy was done, finding complete occlusion of right middle lobe bronchus. Biopsies were taken which are pending. 2. Bilateral wheezing, likely with COPD. Plan: Follow up biopsies. Will there is no distant metastases, given the location and compression of right lobar pulmonary artery and right lower lobe bronchus, this is unlikely to be resectable. If small cell carcinoma, will benefit from chemo/RT. If Non small cell, would fits best with SCCA, and would benefit from chemo possibly in combination with RT. Discussed with patient and daughter bedside. Will follow. Consultation Date/Type/Reason Admit Date/Time Aug 21, 2017 at 20:35 Date of Consultation: Aug 28, 2017 Type of Consultation: Oncology Reason for Consultation Lung mass, likely lung cancer Referring Provider: ALANNA TAM Hx of Present Illness 76 year old with 40 pack years of smoking, quit 25 years ago, presented to hospital with right anterior chest pain and shortness of breath. CT angio was done finding a right infrahilar mass with extrinsic compression of the right lower lobar pulmonary artery and occlusion of the superior segment right lower lobe bronchus with postobstructive consolidation. There is associated right hilar adenopathy. Staging did not reveal any distant metastases. Bronchoscopy was done, finding complete occlusion of right middle lobe bronchus. Biopsies were taken which are pending. Patient denies any recent weight loss. She does have shortness of breath with exertion more recently. The pain in the anterior right chest is better. Constitutional: improved, no complaints, other, requiring IVF, requiring O2, No chills, No diaphoresis, No disoriented, No febrile, No poor po Eyes: no complaints, No discharge, No other, No pain, No redness, No visual change ENT: no complaints, other, No bleeding, No discharge, No dysphagia, No pain, No sore throat Respiratory: cough, no complaints, pain, pleuritic pain, shortness of breath, sputum, wheezing Cardiovascular: chest pain, edema, other, paroxysmal nocturnal dyspnea, No lightheadedness, No no complaints, No orthopenea, No palpitations Gastrointestinal: no complaints, No blood, No constipation, No decreased appetite, No diarrhea, No flatus, No nausea, No other, No pain, No passing stool, No vomiting Genitourinary: no complaints Musculoskeletal: no complaints, No back pain, No bone/joint pain, No neck pain, No other, No restricted range of motion, No swelling Skin: no complaints, No bruising, No erythema, No laceration, No other, No pruritis, No rash, No skin lesions Neurologic: no complaints, No confusion, No dizziness, No focal-weakness, No headache, No other, No seizure, No syncope Endocrine: no complaints Lymphatic: no complaints, No adenopathy, No lymphadema, No other, No tender nodes Psychological: nl mood/affect, no complaints Past Medical History Medical History: high cholesterol, hypertension Past Surgical History Past Surgical Hx: no surgical history, cholecystectomy Family History Significant Family History: no pertinent family hx Social History Alcohol Use: none Smoking Status: Former smoker (40 pack years) Drug Use: none Exam/Review of Systems Vital Signs Vitals Vital Signs Date Time Temp Pulse Resp B/P Pulse Ox O2 Delivery O2 Flow Rate FiO2 08/28/17 14:57 97.5 90 16 123/76 95 08/28/17 07:52 21 08/27/17 16:49 Nasal Cannula 2.0 Intake and Output 08/27/17 08/27/17 08/28/17 15:00 23:00 07:00 Intake Total 100 ml 600 ml 700 ml Output Total 5 ml Balance 95 ml 600 ml 700 ml Exam NAD WD and WN Alert and Oriented x 3 Walks on her own, no assist. CHEST - bilateral wheezing inspiratory and exp. Heart - regularly, no murmer Abd - soft, non tender Ext - no edema. Neuro - inspector screen printing intact bilaterally, no weakness. Results Result Diagram: 08/28/17 0505 08/28/17 0505 Results 24 hrs Laboratory Tests Test 08/28/17 05:05 White Blood Count 12.4 #H Red Blood Count 4.55 Hemoglobin 12.8 Hematocrit 39.7 Mean Corpuscular Volume 87.3 Mean Corpuscular Hemoglobin 28.1 L Mean Corpuscular Hemoglobin Concent 32.2 Red Cell Distribution Width 12.0 Platelet Count 317 Mean Platelet Volume 10.0 Neutrophils % 78.4 H Lymphocytes % 14.9 L Monocytes % 5.8 Eosinophils % 0.0 Basophils % 0.1 Nucleated Red Blood Cells % 0.0 Neutrophils # 9.7 H Lymphocytes # 1.8 Monocytes # 0.7 Eosinophils # 0.0 Basophils # 0.0 Nucleated Red Blood Cells # 0.0 Sodium Level 135 Potassium Level 4.9 Chloride Level 99 Carbon Dioxide Level 25 Anion Gap 16 Blood Urea Nitrogen 15 Creatinine 0.77 Glucose Level 117 Calcium Level 9.1 Medications Medications Current Medications Carvedilol (Coreg) 3.125 mg BID PO Last administered on 08/28/17 09:58; Admin Dose 3.125 MG; Start 08/22/17 at 00:30 Enalapril Maleate (Vasotec) 20 mg DAILY PO Last administered on 08/28/17 09: 58; Admin Dose 20 MG; Start 08/22/17 at 09:00 Pantoprazole (Protonix Tab) 40 mg BID@,18 PO Last administered on 08/28/17 05:50; Admin Dose 40 MG; Start 08/22/17 at 01:00 Atorvastatin Calcium (Lipitor) 10 mg QHS PO Last administered on 08/27/17 21: 42; Admin Dose 10 MG; Start 08/22/17 at 21:00 Ondansetron HCl (Zofran Inj) 4 mg Q6H PRN IV NAUSEA AND/OR VOMITING; Start 08/22/17 at 00:30 Nitroglycerin (Nitroglycerin (Sl Tab) 0.4 Mg) 1 tab Q5M PRN SL CHEST PAIN; Start 08/22/17 at 00:30 Morphine Sulfate (morphine) 2 mg Q4H PRN IV PAIN LEVEL 7-10; Start 08/22/17 at 00:30 Docusate Sodium (Colace) 100 mg Q12H PRN PO CONSTIPATION; Start 08/22/17 at 00: 30 Bisacodyl (Dulcolax) 5 mg DAILY PRN PO CONSTIPATION; Start 08/22/17 at 00:30 Amoxicillin/ Clavulanate Potassium (Augmentin) 875 mg BID PO Last administered on 08/28/17t 09:58; Admin Dose 875 MG; Start 08/22/17 at 21:00; Stop 08/29/17 at 20:59 Guaifenesin (Robitussin Liquid Cup) 200 mg Q4H PRN PO COUGH; Start 08/28/17 at 11:30 Phenol (Cepastat Lozenge) 1 lozenge Q1H PRN MT COUGH; Start 08/28/17 at 11:30 MALORIE MONK MD Aug 28, 2017 16:32
[2017-08-28 20:00] VITALS: BP 129/74; RESP 20
[2017-08-28] MEDS: GUAIFENESIN 20 MG/ML 5ML CUP PO PRN (21:25)
[2017-08-28] MEDS: ATORVASTATIN 10 MG TAB PO SCH (21:26)
[2017-08-29] MEDS: ALBUTEROL/IPRATROPIUM (NEB) 3 ML AMP HHN SCH ×6 (01:08→20:36)
[2017-08-29 02:00] VITALS: BP 128/62; RESP 20
[2017-08-29] MEDS: PANTOPRAZOLE (EC) 40 MG TAB PO SCH ×2 (05:18→17:20)
[2017-08-29] MEDS: GUAIFENESIN 20 MG/ML 5ML CUP PO PRN (05:18)
[2017-08-29 07:55] VITALS: BP 119/73; RESP 16
[2017-08-29] MEDS: ENALAPRIL 20 MG TAB PO SCH (08:17)
[2017-08-29] MEDS: AMOXICILLIN/CLAV 875 MG TAB PO SCH (08:17)
[2017-08-29 08:18] VITALS: BP 159/81; PULSE 78; RESP 16
--- NOTE | 2017-08-29 09:03 | PN ---
Date/Time of Note Date/Time of Note DATE: 08/29/17 TIME: 08:59 Assessment/Plan VTE Prophylaxis VTE Prophylaxis Intervention: SCD's Lines/Catheters IV Catheter Type (from Nrs): Peripheral IV Assessment/Plan Chief Complaint/Hosp Course Assessment/Plan: 76 yo F presented with chest pain found to have R lung mass, with possible postobstructive pneumonia as well. 1. lung mass: Per pulmonary team, this likely represents a right-sided perihilar lung mass with associated mediastinal and hilar adenopathy--c/w primary bronchogenic cancer until proven otherwise (Radiographically T3(or3)N2 for now) -Status post bronchoscopy 2 days ago, follow final biopsy results which are still pending, follow-up pulmonary and hematology oncology consult recommendations as well given likely bronchogenic cancer -Continue pain control medications and cough medicines as needed - cont home meds - general diet -Continue Augmentin 2. High cholesterol: Continue Lipitor Problems: Subjective 24 Hr Interval Summary Free Text/Dictation No acute events overnight, seen by pulmonary and hematology oncology teams yesterday. Exam/Review of Systems Vital Signs Vitals Vital Signs Date Time Temp Pulse Resp B/P Pulse Ox O2 Delivery O2 Flow Rate FiO2 08/29/17 08:47 111 20 96 21 08/29/17 08:18 98.5 159/81 Room Air 08/27/17 16:49 2.0 Intake and Output 08/28/17 08/28/17 08/29/17 14:59 22:59 06:59 Intake Total 1480 ml 1040 ml Balance 1480 ml 1040 ml Exam General: obese female laying in bed in no acute distress HEENT: Atraumatic, normocephalic. The pupils are equal, round and reactive. Extraocular motor are intact Neck: Supple with full range of motion. No rigidity or meningismus Chest: Nontender Lungs: Coarse breath sounds bilaterally, no use of accessory respiratory muscles Heart: Normal S1-S2, Regular rhythm and rate. No overt murmurs appreciated Abdomen: Soft , nontender, nondistended, bowel sounds are present. No guarding no rebound tenderness Extremities: Normal to inspection, no edema no cyanosis Neurologic: Normal mental status, speech normal, cranial nerves II through XII are intact, motor and sensory are intact, no focal weakness Results Result Diagram: 08/28/17 0505 08/28/17 0505 Medications Medications Current Medications Carvedilol (Coreg) 3.125 mg BID PO Last administered on 08/29/17 08:17; Admin Dose 3.125 MG; Start 08/22/17 at 00:30 Enalapril Maleate (Vasotec) 20 mg DAILY PO Last administered on 08/29/17 08: 17; Admin Dose 20 MG; Start 08/22/17 at 09:00 Pantoprazole (Protonix Tab) 40 mg BID@,18 PO Last administered on 08/29/17 05:18; Admin Dose 40 MG; Start 08/22/17 at 01:00 Atorvastatin Calcium (Lipitor) 10 mg QHS PO Last administered on 08/28/17 21: 26; Admin Dose 10 MG; Start 08/22/17 at 21:00 Ondansetron HCl (Zofran Inj) 4 mg Q6H PRN IV NAUSEA AND/OR VOMITING; Start 08/22/17 at 00:30 Nitroglycerin (Nitroglycerin (Sl Tab) 0.4 Mg) 1 tab Q5M PRN SL CHEST PAIN; Start 08/22/17 at 00:30 Morphine Sulfate (morphine) 2 mg Q4H PRN IV PAIN LEVEL 7-10; Start 08/22/17 at 00:30 Docusate Sodium (Colace) 100 mg Q12H PRN PO CONSTIPATION; Start 08/22/17 at 00: 30 Bisacodyl (Dulcolax) 5 mg DAILY PRN PO CONSTIPATION; Start 08/22/17 at 00:30 Amoxicillin/ Clavulanate Potassium (Augmentin) 875 mg BID PO Last administered on 08/29/17 08:17; Admin Dose 875 MG; Start 08/22/17 at 21:00; Stop 08/29/17 at 20:59 Guaifenesin (Robitussin Liquid Cup) 200 mg Q4H PRN PO COUGH Last administered on 08/29/17 05:18; Admin Dose 200 MG; Start 08/28/17 at 11:30 Phenol (Cepastat Lozenge) 1 lozenge Q1H PRN MT COUGH Last administered on 08/28 22:34; Admin Dose 1 LOZENGE; Start 08/28/17 at 11:30 ALANNA TAM Aug 29, 2017 09:03
--- NOTE | 2017-08-29 11:08 | CONS ---
Date/Time of Note Date/Time of Note DATE: 08/29/17 TIME: 11:06 Assessment/Plan Assessment/Plan Additional Assessment/Plan Assessment and recommendations; 1. Patient admitted with chest discomfort discovered to have right perihilar mass, status post bronchoscopy with findings which are highly suggestive of underlying primary bronchogenic carcinoma. Biopsy results are pending. 2. History of hypertension. Patient can be discharged home to be followed up on outpatient basis. Consultation Date/Type/Reason Admit Date/Time Aug 21, 2017 at 20:35 Type of Consultation: Pulmonary Referring Provider: ALANNA TAM 24 HR Interval Summary Free Text/Dictation Patient condition is stable. Denies any shortness of breath, chest pain, hemoptysis. Any fever. General exam; elderly woman, awake alert, currently in no distress. Exam/Review of Systems Vital Signs Vitals Vital Signs Date Time Temp Pulse Resp B/P Pulse Ox O2 Delivery O2 Flow Rate FiO2 08/29/17 08:47 111 20 96 21 08/29/17 08:18 98.5 159/81 Room Air 08/27/17 16:49 2.0 Intake and Output 08/28/17 08/28/17 08/29/17 15:00 23:00 07:00 Intake Total 1480 ml 1040 ml Balance 1480 ml 1040 ml Exam HEENT exam; supple neck, no JVD. No lymphadenopathy. Midline trachea. No thyromegaly. Pharynx is clear. Patient is edentulous. Chest exam; clear to auscultation. S1-S2 audible, no murmurs. Regular rhythm. Abdomen exam; soft, protuberant. Nontender. No organomegaly. Bowel sounds audible. Extremity exam; no peripheral edema. No clubbing. LOADING CHECKER exam; no focal deficit. Results Result Diagram: 08/28/17 0505 08/28/17 0505 Medications Medications Current Medications Carvedilol (Coreg) 3.125 mg BID PO Last administered on 08/29/17 08:17; Admin Dose 3.125 MG; Start 08/22/17 at 00:30 Enalapril Maleate (Vasotec) 20 mg DAILY PO Last administered on 08/29/17 08: 17; Admin Dose 20 MG; Start 08/22/17 at 09:00 Pantoprazole (Protonix Tab) 40 mg BID@,18 PO Last administered on 08/29/17 05:18; Admin Dose 40 MG; Start 08/22/17 at 01:00 Atorvastatin Calcium (Lipitor) 10 mg QHS PO Last administered on 08/28/17 21: 26; Admin Dose 10 MG; Start 08/22/17 at 21:00 Ondansetron HCl (Zofran Inj) 4 mg Q6H PRN IV NAUSEA AND/OR VOMITING; Start 08/22/17 at 00:30 Nitroglycerin (Nitroglycerin (Sl Tab) 0.4 Mg) 1 tab Q5M PRN SL CHEST PAIN; Start 08/22/17 at 00:30 Morphine Sulfate (morphine) 2 mg Q4H PRN IV PAIN LEVEL 7-10; Start 08/22/17 at 00:30 Docusate Sodium (Colace) 100 mg Q12H PRN PO CONSTIPATION; Start 08/22/17 at 00: 30 Bisacodyl (Dulcolax) 5 mg DAILY PRN PO CONSTIPATION; Start 08/22/17 at 00:30 Amoxicillin/ Clavulanate Potassium (Augmentin) 875 mg BID PO Last administered on 08/29/17 08:17; Admin Dose 875 MG; Start 08/22/17 at 21:00; Stop 08/29/17 at 20:59 Guaifenesin (Robitussin Liquid Cup) 200 mg Q4H PRN PO COUGH Last administered on 08/29/17 05:18; Admin Dose 200 MG; Start 08/28/17 at 11:30 Phenol (Cepastat Lozenge) 1 lozenge Q1H PRN MT COUGH Last administered on 08/28 22:34; Admin Dose 1 LOZENGE; Start 08/28/17 at 11:30 ALICIA JACOBSON Aug 29, 2017 11:08
--- NOTE | 2017-08-29 13:37 | PN ---
Date/Time of Note Date/Time of Note DATE: 08/29/17 TIME: 13:34 Assessment/Plan VTE Prophylaxis VTE Prophylaxis Intervention: LMWH Lines/Catheters IV [facility]ter [facility]from [facility]): Saline Lock Urinary Cath still in place: No Assessment/Plan Chief Complaint/Hosp Course 76 year old with 40 pack years of smoking, quit 25 years ago, presented to hospital with right anterior chest pain and shortness of breath. 1. She has a large, ill defined mass int the right hilum suspicious for bronchogenic carcinoma. CT angio was done finding a right infrahilar mass with extrinsic compression of the right lower lobar pulmonary artery and occlusion of the superior segment right lower lobe bronchus with postobstructive consolidation. There is associated right hilar adenopathy. Staging did not reveal any distant metastases. Bronchoscopy was done, finding complete occlusion of right middle lobe bronchus. Biopsies were taken which are pending. 2. Bilateral wheezing, likely with COPD. Plan: Biopsy results are still pending. There is no distant metastases, but unlikely to be resectable based on location and compression of right lobar pulmonary artery and right lower lobe bronchus. If small cell carcinoma, will benefit from chemo/RT. If Non small cell, fits best with SCCA, and would benefit from chemo possibly in combination with RT. She could be discharged if appropriate with out patient f/u of results. Problems: Subjective 24 Hr Interval Summary Free Text/Dictation She feels ok. Pain in the chest has diminished. No short of breath. No new issues or c/o. Exam/Review of Systems Vital Signs Vitals Vital Signs Date Time Temp Pulse Resp B/P Pulse Ox O2 Delivery O2 Flow Rate FiO2 08/29/17 12:43 105 20 93 21 08/29/17 08:18 98.5 159/81 Room Air 08/27/17 16:49 2.0 Intake and Output 08/28/17 08/28/17 08/29/17 15:00 23:00 07:00 Intake Total 1480 ml 1040 ml Balance 1480 ml 1040 ml Exam NAD No LAD Wheezing bilaterally - mild. Abd - soft, NTTP, no HSM. EXT no edema. Results Result Diagram: 08/28/17 0505 08/28/17 0508 Medications Medications Current Medications Carvedilol (Coreg) 3.125 mg BID PO Last administered on 08/29/17t 08:17; Admin Dose 3.125 MG; Start 08/22/17 at 00:30 Enalapril Maleate (Vasotec) 20 mg DAILY PO Last administered on 08/29/17 08: 17; Admin Dose 20 MG; Start 08/22/17 at 09:00 Pantoprazole (Protonix Tab) 40 mg BID@06,18 PO Last administered on 08/29/17 05:18; Admin Dose 40 MG; Start 08/22/17 at 01:00 Atorvastatin Calcium (Lipitor) 10 mg QHS PO Last administered on 08/28/17 21: 26; Admin Dose 10 MG; Start 08/22/17 at 21:00 Ondansetron HCl (Zofran Inj) 4 mg Q6H PRN IV NAUSEA AND/OR VOMITING; Start 08/22/17 at 00:30 Nitroglycerin (Nitroglycerin (Sl Tab) 0.4 Mg) 1 tab Q5M PRN SL CHEST PAIN; Start 08/22/17 at 00:30 Morphine Sulfate (morphine) 2 mg Q4H PRN IV PAIN LEVEL 7-10; Start 08/22/17 at 00:30 Docusate Sodium (Colace) 100 mg Q12H PRN PO CONSTIPATION; Start 08/22/17 at 00: 30 Bisacodyl (Dulcolax) 5 mg DAILY PRN PO CONSTIPATION; Start 08/22/17 at 00:30 Amoxicillin/ Clavulanate Potassium (Augmentin) 875 mg BID PO Last administered on 08/29/17 08:17; Admin Dose 875 MG; Start 08/22/17 at 21:00; Stop 08/29/17 at 20:59 Guaifenesin (Robitussin Liquid Cup) 200 mg Q4H PRN PO COUGH Last administered on 08/29/17 05:18; Admin Dose 200 MG; Start 08/28/17 at 11:30 Phenol (Cepastat Lozenge) 1 lozenge Q1H PRN MT COUGH Last administered on 08/28 22:34; Admin Dose 1 LOZENGE; Start 08/28/17 at 11:30 MALORIE MONK MD Aug 29, 2017 13:37
[2017-08-29 14:00] VITALS: BP 101/57; RESP 20
[2017-08-29 19:43] VITALS: BP 116/60; RESP 18
[2017-08-29] MEDS: ATORVASTATIN 10 MG TAB PO SCH (20:03)
[2017-08-30] MEDS: ALBUTEROL/IPRATROPIUM (NEB) 3 ML AMP HHN SCH ×6 (00:28→20:34)
[2017-08-30 01:32] VITALS: BP 95/54; RESP 18
[2017-08-30] MEDS: PANTOPRAZOLE (EC) 40 MG TAB PO SCH ×2 (06:29→18:43)
[2017-08-30] MEDS: GUAIFENESIN 20 MG/ML 5ML CUP PO PRN (06:32)
[2017-08-30 07:27] VITALS: BP 119/66; RESP 18
[2017-08-30] MEDS: ENALAPRIL 20 MG TAB PO SCH (09:17)
--- NOTE | 2017-08-30 10:54 | CONS ---
Date/Time of Note Date/Time of Note DATE: 08/30/17 TIME: 10:53 Consult Date/Type/Reason Admit Date/Time Aug 21, 2017 at 20:35 Initial Consult Date 08/28/17 Type of Consultation: Pulmonary Ordering Provider: ALANNA TAM Subjective Patient comfortable this morning. Sitting up at rest no nausea no vomiting no chest pain no shortness of breath. Objective Vital Signs Date Time Temp Pulse Resp B/P Pulse Ox O2 Delivery O2 Flow Rate FiO2 08/30/17 07:27 99.2 85 18 119/66 96 08/30/17 07:19 21 08/29/17 08:18 Room Air 08/27/17 16:49 2.0 Intake and Output 08/29/17 08/29/17 08/30/17 15:00 23:00 07:00 Intake Total 780 ml Output Total 650 ml Balance 130 ml Exam GENERAL: VITAL SIGNS: per chart NECK: Supple. No JVD or lymphadenopathy. CARDIAC EXAM: S1, S2. No added sounds or murmurs. CHEST: clear bilaterally, No added sounds, rales or wheezes ABDOMEN: Soft, nontender. No guarding or rebound. EXTREMITIES: No cyanosis, clubbing or edema. NEUROLOGIC: Generalized weakness. No focal deficits. Results/Medications Result Diagram: 08/28/17 0505 08/28/17 0505 Medications Current Medications Carvedilol (Coreg) 3.125 mg BID PO Last administered on 08/30/17 09:18; Admin Dose 3.125 MG; Start 08/22/17 at 00:30 Enalapril Maleate (Vasotec) 20 mg DAILY PO Last administered on 08/30/17 09: 17; Admin Dose 20 MG; Start 08/22/17 at 09:00 Pantoprazole (Protonix Tab) 40 mg BID@06,18 PO Last administered on 08/30/17 06:29; Admin Dose 40 MG; Start 08/22/17 at 01:00 Atorvastatin Calcium (Lipitor) 10 mg QHS PO Last administered on 08/29/17 20: 03; Admin Dose 10 MG; Start 08/22/17 at 21:00 Ondansetron HCl (Zofran Inj) 4 mg Q6H PRN IV NAUSEA AND/OR VOMITING; Start 08/22/17 at 00:30 Nitroglycerin (Nitroglycerin (Sl Tab) 0.4 Mg) 1 tab Q5M PRN SL CHEST PAIN; Start 08/22/17 at 00:30 Morphine Sulfate (morphine) 2 mg Q4H PRN IV PAIN LEVEL 7-10; Start 08/22/17 at 00:30 Docusate Sodium (Colace) 100 mg Q12H PRN PO CONSTIPATION; Start 08/22/17 at 00: 30 Bisacodyl (Dulcolax) 5 mg DAILY PRN PO CONSTIPATION; Start 08/22/17 at 00:30 Guaifenesin (Robitussin Liquid Cup) 200 mg Q4H PRN PO COUGH Last administered on 08/30/17 06:32; Admin Dose 200 MG; Start 08/28/17 at 11:30 Phenol (Cepastat Lozenge) 1 lozenge Q1H PRN MT COUGH Last administered on 08/28t 22:34; Admin Dose 1 LOZENGE; Start 08/28/17 at 11:30 Assessment/Plan Chief Complaint/Hosp Course Assessment 1. Right lower lobe right middle lobe obstructing lesion status post bronchoscopy pending biopsies. 2. Post obstructive pneumonia Plan 1. Await biopsy results. Patient currently has no insurance. Would await results to determine plan of care before discharge. Problems: ESTRELLA MERIDA MD, [facility] Aug 30, 2017 10:53
[2017-08-30 15:40] VITALS: BP 119/84; RESP 18
--- NOTE | 2017-08-30 16:15 | PN ---
Date/Time of Note Date/Time of Note DATE: 08/30/17 TIME: 16:14 Assessment/Plan VTE Prophylaxis VTE Prophylaxis Intervention: SCD's Lines/Catheters IV Catheter Type (from Nrs): Saline Lock Urinary Cath still in place: No Assessment/Plan Assessment/Plan 76 yo F admitted for chest pain, found to have lung mass sp bronch with biopsy 08.27. Path and pt's insurance are pending. dc home once CM able to ensure pt has MediCal Subjective 24 Hr Interval Summary Free Text/Dictation path and pt's MediCal status still pending Exam/Review of Systems Vital Signs Vitals Vital Signs Date Time Temp Pulse Resp B/P Pulse Ox O2 Delivery O2 Flow Rate FiO2 08/30/17 15:40 98.1 102 18 119/84 95 08/30/17 13:10 21 08/29/17 08:18 Room Air 08/27/17 16:49 2.0 Intake and Output 08/29/17 08/29/17 08/30/17 15:00 23:00 07:00 Intake Total 780 ml Output Total 650 ml Balance 130 ml Exam nad no mrg lungs clear abd soft no rashes Results Result Diagram: 08/28/17 0505 08/28/17 0505 Medications Medications Current Medications Carvedilol (Coreg) 3.125 mg BID PO Last administered on 08/30/17 09:18; Admin Dose 3.125 MG; Start 08/22/17 at 00:30 Enalapril Maleate (Vasotec) 20 mg DAILY PO Last administered on 08/30/17 09: 17; Admin Dose 20 MG; Start 08/22/17 at 09:00 Pantoprazole (Protonix Tab) 40 mg BID@06,18 PO Last administered on 08/30/17 06:29; Admin Dose 40 MG; Start 08/22/17 at 01:00 Atorvastatin Calcium (Lipitor) 10 mg QHS PO Last administered on 08/29/17 20: 03; Admin Dose 10 MG; Start 08/22/17 at 21:00 Ondansetron HCl (Zofran Inj) 4 mg Q6H PRN IV NAUSEA AND/OR VOMITING; Start 08/22/17 at 00:30 Nitroglycerin (Nitroglycerin (Sl Tab) 0.4 Mg) 1 tab Q5M PRN SL CHEST PAIN; Start 08/22/17 at 00:30 Morphine Sulfate (morphine) 2 mg Q4H PRN IV PAIN LEVEL 7-10; Start 08/22/17 at 00:30 Docusate Sodium (Colace) 100 mg Q12H PRN PO CONSTIPATION; Start 08/22/17 at 00: 30 Bisacodyl (Dulcolax) 5 mg DAILY PRN PO CONSTIPATION; Start 08/22/17 at 00:30 Guaifenesin (Robitussin Liquid Cup) 200 mg Q4H PRN PO COUGH Last administered on 08/30/17 06:32; Admin Dose 200 MG; Start 08/28/17 at 11:30 Phenol (Cepastat Lozenge) 1 lozenge Q1H PRN MT COUGH Last administered on 08/28 22:34; Admin Dose 1 LOZENGE; Start 08/28/17 at 11:30 SONG NOBLES MD Aug 30, 2017 16:15
[2017-08-30 19:39] VITALS: BP 107/68; RESP 18
[2017-08-30] MEDS: ATORVASTATIN 10 MG TAB PO SCH (20:20)
--- NOTE | 2017-08-30 22:08 | PN ---
DATE: 08/30/2017 MEDICAL ONCOLOGY PROGRESS NOTE SUBJECTIVE: The patient states she is feeling much better. She does not complain of chest pain or shortness of breath at this time. She states that the cough and hemoptysis which she had prior to a dmission has resolved. OBJECTIVE: GENERAL: The patient is a well-developed, well-nourished elderly female who is in no acute distress . VITAL SIGNS: Temperature 98.1, pulse 102, respirations 18, blood pressure is 119/84, pulse oximetry is 95% on room air. SKIN: No ecchymosis, no petechial rashes. HEENT: No mucosal lesions. No scleral icterus. NECK: Supple. No jugular venous distention or thyroid enlargement. No Kussmaul sign. CHEST: Decreased breath sounds in the right base. There were no rhonchi, wheezes, rales or rubs. HEART: Sinus tachycardia. No S3, S4 or murmurs. ABDOMEN: Soft. No masses, no ascites. EXTREMITIES: Good range of motion. No clubbing, no edema or cyanosis. No palpable cords or Homans sign. DIAGNOSTIC DATA: CEA on 08/28/2017 was 1.7. ASSESSMENT: Right infrahilar mass with extrinsic compression of the right lower lobe pulmonary bing ry and occlusion of the superior segment of the right lower lobe, rule out malignancy. DISCUSSION: This process likely represents a bronchogenic carcinoma. Biopsies have been obtained a nd are pending at this time. Any further treatment will depend upon the histology of this lesion. If the patient has a small cell carcinoma of the lung, she would best be treated with combined chemo therapy and radiation therapy. If this is a nonsmall cell carcinoma, than it would appear that this is an unresectable lesion and c hemotherapy would then depend upon the cell type and any mutations such as EGFR or ALK gene rearrang ement. There is also the possibility that this could be a lymphoma, although the patient has no other lymph adenopathy, organomegaly. As noted, that the patient's CEA is only 1.7. I will obtain a serum protein electrophoresis and immunofixation as well as a beta 2 microglobulin. I have discussed the situation with the patient and her daughter. I have told them that any further recommendations will depend upon the results of the biopsy, which hopefully will be available shahab john. Dictated By: SANTOSH LYNCH MD SR/JACQUI Conf#: [id number] [facility]#: [id number]
[2017-08-31] MEDS: ALBUTEROL/IPRATROPIUM (NEB) 3 ML AMP HHN SCH ×6 (00:52→20:19)
[2017-08-31 01:53] VITALS: BP 122/73; RESP 18
[2017-08-31] MEDS: PANTOPRAZOLE (EC) 40 MG TAB PO SCH ×2 (06:50→18:18)
[2017-08-31 07:43] VITALS: BP 122/82; RESP 18
[2017-08-31] MEDS: ENALAPRIL 20 MG TAB PO SCH (08:36)
--- NOTE | 2017-08-31 12:05 | CONS ---
Date/Time of Note Date/Time of Note DATE: 08/31/17 TIME: 12:03 Assessment/Plan Assessment/Plan Additional Assessment/Plan Assessment and recommendations; 1. Patient admitted with chest pain discovered to have right hilar mass status post bronchoscopy with findings which are worrisome for underlying lung malignancy. Biopsy results are still pending. Continue current supportive care. Further workup will be determined once biopsy results are obtained. Consultation Date/Type/Reason Admit Date/Time Aug 21, 2017 at 20:35 Type of Consultation: Pulmonary Referring Provider: ALANNA TAM 24 HR Interval Summary Free Text/Dictation Patient's condition remains stable. Denies any shortness breath, chest pain, wheezing, cough or sputum production. General exam; elderly woman, awake alert, currently in no distress. Exam/Review of Systems Vital Signs Vitals Vital Signs Date Time Temp Pulse Resp B/P Pulse Ox O2 Delivery O2 Flow Rate FiO2 08/31/17 07:46 92 20 96 21 08/31/17 07:43 98.4 122/82 08/29/17 08:18 Room Air 08/27/17 16:49 2.0 Intake and Output 08/30/17 08/30/17 08/31/17 15:00 23:00 07:00 Intake Total 2100 ml 450 ml Balance 2100 ml 450 ml Exam HEENT exam; supple neck, no JVD. No lymphadenopathy. Midline trachea. No thyromegaly. Patient is edentulous. Chest exam; clear to auscultation. S1-S2 audible, no murmurs. Regular rhythm. Abdomen exam; soft, nontender. Bowel sounds audible. Extremity exam; no peripheral edema. No clubbing. NAIL EXPERT exam; no focal deficit. Results Result Diagram: 08/28/17 0505 08/28/17 0505 Medications Medications Current Medications Carvedilol (Coreg) 3.125 mg BID PO Last administered on 08/31/17 08:36; Admin Dose 3.125 MG; Start 08/22/17 at 00:30 Enalapril Maleate (Vasotec) 20 mg DAILY PO Last administered on 08/31/17 08: 36; Admin Dose 20 MG; Start 08/22/17 at 09:00 Pantoprazole (Protonix Tab) 40 mg BID@,18 PO Last administered on 08/31/17 06:50; Admin Dose 40 MG; Start 08/22/17 at 01:00 Atorvastatin Calcium (Lipitor) 10 mg QHS PO Last administered on 08/30/17 20: 20; Admin Dose 10 MG; Start 08/22/17 at 21:00 Ondansetron HCl (Zofran Inj) 4 mg Q6H PRN IV NAUSEA AND/OR VOMITING; Start 08/22/17 at 00:30 Nitroglycerin (Nitroglycerin (Sl Tab) 0.4 Mg) 1 tab Q5M PRN SL CHEST PAIN; Start 08/22/17 at 00:30 Morphine Sulfate (morphine) 2 mg Q4H PRN IV PAIN LEVEL 7-10; Start 08/22/17 at 00:30 Docusate Sodium (Colace) 100 mg Q12H PRN PO CONSTIPATION; Start 08/22/17 at 00: 30 Bisacodyl (Dulcolax) 5 mg DAILY PRN PO CONSTIPATION; Start 08/22/17 at 00:30 Guaifenesin (Robitussin Liquid Cup) 200 mg Q4H PRN PO COUGH Last administered on 08/30/17 06:32; Admin Dose 200 MG; Start 08/28/17 at 11:30 Phenol (Cepastat Lozenge) 1 lozenge Q1H PRN MT COUGH Last administered on 08/28 22:34; Admin Dose 1 LOZENGE; Start 08/28/17 at 11:30 ALICIA JACOBSON Aug 31, 2017 12:05
--- NOTE | 2017-08-31 13:27 | PN ---
Date/Time of Note Date/Time of Note DATE: 08/31/17 TIME: 13:26 Assessment/Plan VTE Prophylaxis VTE Prophylaxis Intervention: SCD's Lines/Catheters IV Catheter Type (from Nrsg): Saline Lock Urinary Cath still in place: No Assessment/Plan Assessment/Plan 76 yo F admitted for chest pain, found to have lung mass sp bronch with biopsy 08.27. Path and pt's insurance are pending. onc following dc home once CM able to ensure pt has MediCal Subjective 24 Hr Interval Summary Free Text/Dictation no complaints Exam/Review of Systems Vital Signs Vitals Vital Signs Date Time Temp Pulse Resp B/P Pulse Ox O2 Delivery O2 Flow Rate FiO2 08/31/17 13:13 98 20 96 21 08/31/17 07:43 98.4 122/82 08/29/17 08:18 Room Air 08/27/17 16:49 2.0 Intake and Output 08/30/17 08/30/17 08/31/17 14:59 22:59 06:59 Intake Total 2100 ml 450 ml Balance 2100 ml 450 ml Exam nad no mrg lungs clear abd soft no rashes Results Result Diagram: 08/28/17 0505 08/28/17 0505 Medications Medications Current Medications Carvedilol (Coreg) 3.125 mg BID PO Last administered on 08/31/17 08:36; Admin Dose 3.125 MG; Start 08/22/17 at 00:30 Enalapril Maleate (Vasotec) 20 mg DAILY PO Last administered on 08/31/17 08: 36; Admin Dose 20 MG; Start 08/22/17 at 09:00 Pantoprazole (Protonix Tab) 40 mg BID@06,18 PO Last administered on 08/31/17 06:50; Admin Dose 40 MG; Start 08/22/17 at 01:00 Atorvastatin Calcium (Lipitor) 10 mg QHS PO Last administered on 08/30/17 20: 20; Admin Dose 10 MG; Start 08/22/17 at 21:00 Ondansetron HCl (Zofran Inj) 4 mg Q6H PRN IV NAUSEA AND/OR VOMITING; Start 08/22/17 at 00:30 Nitroglycerin (Nitroglycerin (Sl Tab) 0.4 Mg) 1 tab Q5M PRN SL CHEST PAIN; Start 08/22/17 at 00:30 Morphine Sulfate (morphine) 2 mg Q4H PRN IV PAIN LEVEL 7-10; Start 08/22/17 at 00:30 Docusate Sodium (Colace) 100 mg Q12H PRN PO CONSTIPATION; Start 08/22/17 at 00: 30 Bisacodyl (Dulcolax) 5 mg DAILY PRN PO CONSTIPATION; Start 08/22/17 at 00:30 Guaifenesin (Robitussin Liquid Cup) 200 mg Q4H PRN PO COUGH Last administered on 08/30/17 06:32; Admin Dose 200 MG; Start 08/28/17 at 11:30 Phenol (Cepastat Lozenge) 1 lozenge Q1H PRN MT COUGH Last administered on 08/28 22:34; Admin Dose 1 LOZENGE; Start 08/28/17 at 11:30 SONG NOBLES MD Aug 31, 2017 13:27
[2017-08-31 14:00] VITALS: BP 101/59; RESP 18
[2017-08-31 19:17] VITALS: BP 112/71; RESP 20
[2017-08-31] MEDS: ATORVASTATIN 10 MG TAB PO SCH (20:29)
--- NOTE | 2017-08-31 21:42 | PN ---
DATE: 08/31/2017 SUBJECTIVE: The patient states that she is feeling better. Less complaints of shortness of breath and cough. Does have a feeling of "pressure" when she lies down in a supine position. OBJECTIVE: GENERAL: Patient is a well-developed, obese female who is in no acute distress. VITAL SIGNS: Temperature is 98.7, pulse 106 per minute and regular, respirations 20 per minute, blo od pressure 112/71, and pulse oximetry is 93% on room air. SKIN: No ecchymosis, no petechiae or rashes. HEENT: No mucosal lesions. No scleral icterus. NECK: Supple, no jugular venous distention or thyroid enlargement. There is no Kussmaul sign. CHEST: Decreased breath sounds on the right side. There are no rhonchi, wheezes, rales or rubs. NODES: No palpable lymphadenopathy. HEART: Sinus tachycardia. No S3, S4 or murmurs. ABDOMEN: Soft, no masses, no ascites. EXTREMITIES: Good range of motion, no clubbing, edema or cyanosis. No palpable cords or Homans sig n. NEUROLOGIC: Normal. DIAGNOSTIC DATA: The pathology results from the endobronchial biopsy and brushings unfortunately di d not show any evidence of malignancy. There are reactive epithelial cells as well as histiocytic a ggregates. Other studies to rule out a possible lymphoproliferative disorder are not available at this time. ASSESSMENT: Right infrahilar mass with extrinsic compression of the right lower lobe pulmonary bing ry and occlusion of the superior segment of the right lower lobe, rule out malignancy. Discussion: I have discussed the situation again with the patient and family. I have told them zoraida t in order to give any onset therapeutic or prognosticate recommendation, it would be necessary to h ave a tissue diagnosis. Repeat biopsy will be necessary. Dictated By: SANTOSH LYNCH MD SR/NTS Conf#: [id number] DID#: [id number]
[2017-09-01] MEDS: ALBUTEROL/IPRATROPIUM (NEB) 3 ML AMP HHN SCH ×6 (01:38→21:00)
[2017-09-01 01:46] VITALS: BP 104/62; RESP 20
[2017-09-01] MEDS: PANTOPRAZOLE (EC) 40 MG TAB PO SCH ×2 (06:17→18:24)
[2017-09-01 07:39] VITALS: BP 106/74; RESP 16
[2017-09-01] MEDS: ENALAPRIL 20 MG TAB PO SCH (09:27)
[2017-09-01 11:41] LABS: IMMUNOGLOBULIN A 180 mg/dl (70-400); IMMUNOGLOBULIN G 938 mg/dl (700-1600); IMMUNOGLOBULIN M 199 mg/dl (40-230)
--- NOTE | 2017-09-01 12:06 | CONS ---
Date/Time of Note Date/Time of Note DATE: 09/01/17 TIME: 12:01 Consultation Date/Type/Reason Admit Date/Time Aug 21, 2017 at 20:35 Type of Consultation: Pulmonary Referring Provider: ALANNA TAM 24 HR Interval Summary Free Text/Dictation Patient condition is stable. Denies any shortness of breath, chest pain. General exam; elderly woman, awake alert. Currently no distress. HEENT exam; supple neck, no JVD. No lymphadenopathy. Midline trachea. Patient is edentulous. Chest exam; clear to auscultation. S1-S2 audible, no murmurs. Abdomen exam; soft, nontender. No organomegaly. Extremity exam; no peripheral edema. VEHICLE AND EQUIPMENT CLEANER exam; no focal deficit. Assessment and recommendations; Patient admitted with chest discomfort discovered to have right perihilar mass. However endobronchial biopsies brushings and washings are nondiagnostic for malignancy. However CT imaging of the chest and endoscopic findings are highly worrisome for underlying malignancy. Patient will benefit from CT-guided biopsy. HEENT exam; supple neck, no JVD. Chest exam; clear to auscultation. Exam/Review of Systems Vital Signs Vitals Vital Signs Date Time Temp Pulse Resp B/P Pulse Ox O2 Delivery O2 Flow Rate FiO2 09/01/17 08:45 97 18 95 21 09/01/17 07:39 98.2 106/74 08/29/17 08:18 Room Air Intake and Output 08/31/17 08/31/17 09/01/17 15:00 23:00 07:00 Intake Total 800 ml 500 ml Balance 800 ml 500 ml Results Result Diagram: 08/28/17 0505 08/28/17 0505 Results 24 hrs Laboratory Tests Test 09/01/17 05:36 Immunoglobulin A 180 Immunoglobulin G 938 Immunoglobulin M 199 Medications Medications Current Medications Carvedilol (Coreg) 3.125 mg BID PO Last administered on 09/01/17 09:26; Admin Dose 3.125 MG; Start 08/22/17 at 00:30 Enalapril Maleate (Vasotec) 20 mg DAILY PO Last administered on 09/01/17 09: 27; Admin Dose 20 MG; Start 08/22/17 at 09:00 Pantoprazole (Protonix Tab) 40 mg BID@18 PO Last administered on 09/01/17 06:17; Admin Dose 40 MG; Start 08/22/17 at 01:00 Atorvastatin Calcium (Lipitor) 10 mg QHS PO Last administered on 08/31/17 20: 29; Admin Dose 10 MG; Start 08/22/17 at 21:00 Ondansetron HCl (Zofran Inj) 4 mg Q6H PRN IV NAUSEA AND/OR VOMITING; Start 08/22/17 at 00:30 Nitroglycerin (Nitroglycerin (Sl Tab) 0.4 Mg) 1 tab Q5M PRN SL CHEST PAIN; Start 08/22/17 at 00:30 Morphine Sulfate (morphine) 2 mg Q4H PRN IV PAIN LEVEL 7-10; Start 08/22/17 at 00:30 Docusate Sodium (Colace) 100 mg Q12H PRN PO CONSTIPATION; Start 08/22/17 at 00: 30 Bisacodyl (Dulcolax) 5 mg DAILY PRN PO CONSTIPATION; Start 08/22/17 at 00:30 Guaifenesin (Robitussin Liquid Cup) 200 mg Q4H PRN PO COUGH Last administered on 08/30/17 06:32; Admin Dose 200 MG; Start 08/28/17 at 11:30 Phenol (Cepastat Lozenge) 1 lozenge Q1H PRN MT COUGH Last administered on 08/28 22:34; Admin Dose 1 LOZENGE; Start 08/28/17 at 11:30 ALICIA JACOBSON Sep 01, 2017 12:06
--- NOTE | 2017-09-01 14:29 | PN ---
Date/Time of Note Date/Time of Note DATE: 09/01/17 TIME: 14:19 Assessment/Plan VTE Prophylaxis VTE Prophylaxis Intervention: SCD's Lines/Catheters IV Catheter Type (from Nrs): Saline Lock Urinary Cath still in place: No Assessment/Plan Assessment/Plan 76 yo F admitted for chest pain, found to have lung mass sp bronch with biopsy 10.13. bronch path negative IR biopsy ordered onc following mediCal still pending Subjective 24 Hr Interval Summary Free Text/Dictation negative path results dw pt Exam/Review of Systems Vital Signs Vitals Vital Signs Date Time Temp Pulse Resp B/P Pulse Ox O2 Delivery O2 Flow Rate FiO2 09/01/17 13:30 96 18 98 21 09/01/17 07:39 98.2 106/74 08/29/17 08:18 Room Air Intake and Output 08/31/17 08/31/17 09/01/17 14:59 22:59 06:59 Intake Total 800 ml 500 ml Balance 800 ml 500 ml Exam nad resp nonlabored abd nondistended no rashes no edema bronch path negative Results Result Diagram: 08/28/17 0505 08/28/17 0505 Results 24 hrs Laboratory Tests Test 09/01/17 05:36 Immunoglobulin A 180 Immunoglobulin G 938 Immunoglobulin M 199 Medications Medications Current Medications Carvedilol (Coreg) 3.125 mg BID PO Last administered on 09/01/17 09:26; Admin Dose 3.125 MG; Start 08/22/17 at 00:30 Enalapril Maleate (Vasotec) 20 mg DAILY PO Last administered on 09/01/17 09: 27; Admin Dose 20 MG; Start 08/22/17 at 09:00 Pantoprazole (Protonix Tab) 40 mg BID@06,18 PO Last administered on 09/01/17 06:17; Admin Dose 40 MG; Start 08/22/17 at 01:00 Atorvastatin Calcium (Lipitor) 10 mg QHS PO Last administered on 08/31/17 20: 29; Admin Dose 10 MG; Start 08/22/17 at 21:00 Ondansetron HCl (Zofran Inj) 4 mg Q6H PRN IV NAUSEA AND/OR VOMITING; Start 08/22/17 at 00:30 Nitroglycerin (Nitroglycerin (Sl Tab) 0.4 Mg) 1 tab Q5M PRN SL CHEST PAIN; Start 08/22/17 at 00:30 Morphine Sulfate (morphine) 2 mg Q4H PRN IV PAIN LEVEL 7-10; Start 08/22/17 at 00:30 Docusate Sodium (Colace) 100 mg Q12H PRN PO CONSTIPATION; Start 08/22/17 at 00: 30 Bisacodyl (Dulcolax) 5 mg DAILY PRN PO CONSTIPATION; Start 08/22/17 at 00:30 Guaifenesin (Robitussin Liquid Cup) 200 mg Q4H PRN PO COUGH Last administered on 08/30/17 06:32; Admin Dose 200 MG; Start 08/28/17 at 11:30 Phenol (Cepastat Lozenge) 1 lozenge Q1H PRN MT COUGH Last administered on 08/28 22:34; Admin Dose 1 LOZENGE; Start 08/28/17 at 11:30 SONG NOBLES MD Sep 01, 2017 14:20
[2017-09-01 14:43] VITALS: BP 109/78; RESP 16
--- NOTE | 2017-09-01 16:16 | PN ---
Date/Time of Note Date/Time of Note DATE: 09/01/17 TIME: 16:15 Assessment/Plan VTE Prophylaxis VTE Prophylaxis Intervention: ambulation, other (biopsy planned) Lines/Catheters [facility]from [facility] Saline Lock Urinary Cath still in place: No Assessment/Plan Assessment/Plan Biopsy is ordered and the nurse says that it is going to be done tomorrow or Wednesday. Await path results before any oncologic suggestions for treatment are made. Subjective 24 Hr Interval Summary Free Text/Dictation Pt is sitting in chair and eating Exam/Review of Systems Vital Signs Vitals Vital Signs Date Time Temp Pulse Resp B/P Pulse Ox O2 Delivery O2 Flow Rate FiO2 09/01/17 14:43 97.8 99 16 109/78 96 09/01/17 13:30 21 08/29/17 08:18 Room Air Intake and Output 08/31/17 08/31/17 09/01/17 15:00 23:00 07:00 Intake Total 800 ml 500 ml Balance 800 ml 500 ml Exam Constitutional: alert Head: normocephalic Neck: supple Respiratory: clear to auscultation Cardiovascular: regular rate and rhythm Gastrointestinal: non-tender, soft Extremities: normal pulses Results Result Diagram: 08/28/17 0505 08/28/17 0505 Results 24 hrs Laboratory Tests Test 09/01/17 05:36 Immunoglobulin A 180 Immunoglobulin G 938 Immunoglobulin M 199 Medications Medications Current Medications Carvedilol (Coreg) 3.125 mg BID PO Last administered on 09/01/17 09:26; Admin Dose 3.125 MG; Start 08/22/17 at 00:30 Enalapril Maleate (Vasotec) 20 mg DAILY PO Last administered on 09/01/17 09: 27; Admin Dose 20 MG; Start 08/22/17 at 09:00 Pantoprazole (Protonix Tab) 40 mg BID@18 PO Last administered on 09/01/17 06:17; Admin Dose 40 MG; Start 08/22/17 at 01:00 Atorvastatin Calcium (Lipitor) 10 mg QHS PO Last administered on 08/31/17 20: 29; Admin Dose 10 MG; Start 08/22/17 at 21:00 Ondansetron HCl (Zofran Inj) 4 mg Q6H PRN IV NAUSEA AND/OR VOMITING; Start 08/22/17 at 00:30 Nitroglycerin (Nitroglycerin (Sl Tab) 0.4 Mg) 1 tab Q5M PRN SL CHEST PAIN; Start 08/22/17 at 00:30 Morphine Sulfate (morphine) 2 mg Q4H PRN IV PAIN LEVEL 7-10; Start 08/22/17 at 00:30 Docusate Sodium (Colace) 100 mg Q12H PRN PO CONSTIPATION; Start 08/22/17 at 00: 30 Bisacodyl (Dulcolax) 5 mg DAILY PRN PO CONSTIPATION; Start 08/22/17 at 00:30 Guaifenesin (Robitussin Liquid Cup) 200 mg Q4H PRN PO COUGH Last administered on 08/30/17 06:32; Admin Dose 200 MG; Start 08/28/17 at 11:30 Phenol (Cepastat Lozenge) 1 lozenge Q1H PRN MT COUGH Last administered on 08/28 22:34; Admin Dose 1 LOZENGE; Start 08/28/17 at 11:30 KEITH DAO MD Sep 01, 2017 16:16
[2017-09-01 19:59] VITALS: BP 109/63; RESP 20
[2017-09-01] MEDS: ATORVASTATIN 10 MG TAB PO SCH (21:44)
[2017-09-01 21:50] VITALS: BP 105/60; PULSE 97
[2017-09-02] MEDS: ALBUTEROL/IPRATROPIUM (NEB) 3 ML AMP HHN SCH ×6 (00:50→20:43)
[2017-09-02 02:00] VITALS: BP 98/54; RESP 20
[2017-09-02] MEDS: PANTOPRAZOLE (EC) 40 MG TAB PO SCH ×2 (05:02→17:09)
[2017-09-02 07:37] VITALS: BP 129/74; RESP 20
[2017-09-02] MEDS: ENALAPRIL 20 MG TAB PO SCH (09:00)
[2017-09-02 09:54] VITALS: BP 132/82; PULSE 101
--- NOTE | 2017-09-02 12:11 | PN ---
Date/Time of Note Date/Time of Note DATE: 09/02/17 TIME: 12:10 Assessment/Plan VTE Prophylaxis VTE Prophylaxis Intervention: SCD's Lines/Catheters IV Catheter Type (from Nrsg): Saline Lock Urinary Cath still in place: No Assessment/Plan Assessment/Plan 76 yo F admitted for chest pain, found to have lung mass sp bronch with biopsy 10.13. bronch path negative IR biopsy today onc following mediCal still pending Subjective 24 Hr Interval Summary Free Text/Dictation No complaints Exam/Review of Systems Vital Signs Vitals Vital Signs Date Time Temp Pulse Resp B/P Pulse Ox O2 Delivery O2 Flow Rate FiO2 09/02/17 09:54 101 132/82 09/02/17 08:10 20 94 21 09/02/17 07:37 97.9 08/29/17 08:18 Room Air Intake and Output 09/01/17 09/01/17 09/02/17 15:00 23:00 07:00 Intake Total 960 ml Balance 960 ml Exam nad no mrg lungs clear abd soft no rashes Medications Medications Current Medications Carvedilol (Coreg) 3.125 mg BID PO Last administered on 09/01/17 21:43; Admin Dose 3.125 MG; Start 08/22/17 at 00:30 Enalapril Maleate (Vasotec) 20 mg DAILY PO Last administered on 09/01/17 09: 27; Admin Dose 20 MG; Start 08/22/17 at 09:00 Pantoprazole (Protonix Tab) 40 mg BID@06,18 PO Last administered on 09/01/17 18:24; Admin Dose 40 MG; Start 08/22/17 at 01:00 Atorvastatin Calcium (Lipitor) 10 mg QHS PO Last administered on 09/01/17 21: 44; Admin Dose 10 MG; Start 08/22/17 at 21:00 Ondansetron HCl (Zofran Inj) 4 mg Q6H PRN IV NAUSEA AND/OR VOMITING; Start 08/22/17 at 00:30 Nitroglycerin (Nitroglycerin (Sl Tab) 0.4 Mg) 1 tab Q5M PRN SL CHEST PAIN; Start 08/22/17 at 00:30 Morphine Sulfate (morphine) 2 mg Q4H PRN IV PAIN LEVEL 7-10; Start 08/22/17 at 00:30 Docusate Sodium (Colace) 100 mg Q12H PRN PO CONSTIPATION; Start 08/22/17 at 00: 30 Bisacodyl (Dulcolax) 5 mg DAILY PRN PO CONSTIPATION; Start 08/22/17 at 00:30 Guaifenesin (Robitussin Liquid Cup) 200 mg Q4H PRN PO COUGH Last administered on 08/30/17 06:32; Admin Dose 200 MG; Start 08/28/17 at 11:30 Phenol (Cepastat Lozenge) 1 lozenge Q1H PRN MT COUGH Last administered on 08/28 22:34; Admin Dose 1 LOZENGE; Start 08/28/17 at 11:30 SONG NOBLES MD Sep 02, 2017 12:11
--- NOTE | 2017-09-02 12:57 | CONS ---
Date/Time of Note Date/Time of Note DATE: 09/02/17 TIME: 12:56 Consult Date/Type/Reason Admit Date/Time Aug 21, 2017 at 20:35 Initial Consult Date 08/28/17 Type of Consultation: Pulmonary Ordering Provider: ALANNA TAM Subjective Patient comfortable today. Pending CT-guided biopsy Objective Vital Signs Date Time Temp Pulse Resp B/P Pulse Ox O2 Delivery O2 Flow Rate FiO2 09/02/17 12:36 102 23 95 21 09/02/17 09:54 132/82 09/02/17 07:37 97.9 08/29/17 08:18 Room Air Intake and Output 09/01/17 09/01/17 09/02/17 15:00 23:00 07:00 Intake Total 960 ml Balance 960 ml Exam GENERAL: VITAL SIGNS: per chart NECK: Supple. No JVD or lymphadenopathy. CARDIAC EXAM: S1, S2. No added sounds or murmurs. CHEST: clear bilaterally, No added sounds, rales or wheezes ABDOMEN: Soft, nontender. No guarding or rebound. EXTREMITIES: No cyanosis, clubbing or edema. NEUROLOGIC: Generalized weakness. No focal deficits. Results/Medications Medications Current Medications Carvedilol (Coreg) 3.125 mg BID PO Last administered on 09/01/17 21:43; Admin Dose 3.125 MG; Start 08/22/17 at 00:30 Enalapril Maleate (Vasotec) 20 mg DAILY PO Last administered on 09/01/17 09: 27; Admin Dose 20 MG; Start 08/22/17 at 09:00 Pantoprazole (Protonix Tab) 40 mg BID@ PO Last administered on 09/01/17 18:24; Admin Dose 40 MG; Start 08/22/17 at 01:00 Atorvastatin Calcium (Lipitor) 10 mg QHS PO Last administered on 09/01/17 21: 44; Admin Dose 10 MG; Start 08/22/17 at 21:00 Ondansetron HCl (Zofran Inj) 4 mg Q6H PRN IV NAUSEA AND/OR VOMITING; Start 08/22/17 at 00:30 Nitroglycerin (Nitroglycerin (Sl Tab) 0.4 Mg) 1 tab Q5M PRN SL CHEST PAIN; Start 08/22/17 at 00:30 Morphine Sulfate (morphine) 2 mg Q4H PRN IV PAIN LEVEL 7-10; Start 08/22/17 at 00:30 Docusate Sodium (Colace) 100 mg Q12H PRN PO CONSTIPATION; Start 08/22/17 at 00: 30 Bisacodyl (Dulcolax) 5 mg DAILY PRN PO CONSTIPATION; Start 08/22/17 at 00:30 Guaifenesin (Robitussin Liquid Cup) 200 mg Q4H PRN PO COUGH Last administered on 08/30/17 06:32; Admin Dose 200 MG; Start 08/28/17 at 11:30 Phenol (Cepastat Lozenge) 1 lozenge Q1H PRN MT COUGH Last administered on 08/28 22:34; Admin Dose 1 LOZENGE; Start 08/28/17 at 11:30 Assessment/Plan Chief Complaint/Hosp Course Assessment 1. Right lower lobe right middle lobe obstructing lesion status post bronchoscopy pathology was inconclusive. CT-guided biopsy today. 2. Post obstructive pneumonia Plan 1. Await biopsy results. Patient currently has no insurance. Would await results to determine plan of care before discharge. Problems: ESTRELLA MERIDA MD, [facility] Sep 02, 2017 12:57
[2017-09-02] MEDS ORDERED: LIDOCAINE 1% (MDV) 20 ML INJ ONE (13:36)
[2017-09-02] MEDS ORDERED: MIDAZOLAM 1 MG/ML 2 ML INJ ONE (13:49)
[2017-09-02] MEDS ORDERED: SOD CHLORIDE 0.9% 500 ML ONE (13:49)
[2017-09-02] MEDS ORDERED: FENTAnyl 50 MCG/ML VIAL ONE (13:49)
--- NOTE | 2017-09-02 14:44 | RADRPT ---
PROCEDURE: CT Chest. CLINICAL INDICATION: Lung mass for biopsy TECHNIQUE: CT scan of the chest without contrast was performed on multislice CT scanner. The patrick ent was scanned without administration of intravenous contrast. 3-D sagittal and coronal reformatte d images were obtained from the axial source images. CTDIvol (n/a - Toolmaker Grade Three) DLP (n/a - Toolmaker Grade Three) One or more of the following post reduction techniques were used: - Automated exposure control. - Adjustment of the mA and/or Kv according to patient's size. - Use of iterative reconstruction technique COMPARISON: CT 08/23/2017; CT 08/22/2017 FINDINGS: Multiple axial images were obtained through the chest with the patient in the prone position. The previously seen right lower lobe opacity/mass has markedly decreased in size. There is residual right lower lobe atelectasis. RPTAT: AA IMPRESSION: Markedly decreased right lower lobe opacity/mass. Biopsy was not performed. A follow-up CT chest is recommended in 6-8 weeks. .Sorin Raymond MD, Date Time Electronically viewed and signed by .Sorin Raymond MD, on 09/02/2017 14:43 .S/
--- NOTE | 2017-09-02 14:47 | QN ---
Documentation Comment Pt is off floor for biopsy. Discussed with nurses and no new issue has presented. I will f/u tomorrow. KEITH DAO MD Sep 02, 2017 14:47
[2017-09-02 21:24] VITALS: BP 137/82; PULSE 102; RESP 18
[2017-09-02] MEDS: ATORVASTATIN 10 MG TAB PO SCH (21:27)
[2017-09-03] MEDS: ALBUTEROL/IPRATROPIUM (NEB) 3 ML AMP HHN SCH ×4 (01:00→13:11)
[2017-09-03 02:30] VITALS: BP 118/77; PULSE 84; RESP 18
[2017-09-03] MEDS: PANTOPRAZOLE (EC) 40 MG TAB PO SCH (05:12)
[2017-09-03 07:57] VITALS: BP 128/69; RESP 20
--- NOTE | 2017-09-03 09:09 | PN ---
Date/Time of Note Date/Time of Note DATE: 09/03/17 TIME: 09:06 Assessment/Plan VTE Prophylaxis VTE Prophylaxis Intervention: ambulation Lines/Catheters IV [facility] Saline Lock Urinary Cath still in place: No Assessment/Plan Assessment/Plan Biopsy was cancelled by radiologist since the mass was improving. I would suggest that nothing further be done now. She should have f/u CXR in about ten days to be sure that the abnormality completely resolves. If so, no further evaluation. If it does not, then biopsy should be reconsidered.n Clinically she is getting much better though. Subjective 24 Hr Interval Summary Free Text/Dictation Pt is comfortable and sitting in chair eating. Exam/Review of Systems Vital Signs Vitals Vital Signs Date Time Temp Pulse Resp B/P Pulse Ox O2 Delivery O2 Flow Rate FiO2 09/03/17 07:57 99.0 83 20 128/69 99 09/03/17 05:17 21 09/03/17 02:30 Room Air Intake and Output 09/02/17 09/02/17 09/03/17 15:00 23:00 07:00 Intake Total 360 ml 460 ml Balance 360 ml 460 ml Exam Constitutional: alert, oriented Head: normocephalic Neck: supple Respiratory: other (no tachypnea or distress) Cardiovascular: regular rate and rhythm Gastrointestinal: soft Medications Medications Current Medications Carvedilol (Coreg) 3.125 mg BID PO Last administered on 09/02/17 21:27; Admin Dose 3.125 MG; Start 08/22/17 at 00:30 Enalapril Maleate (Vasotec) 20 mg DAILY PO Last administered on 09/01/17 09: 27; Admin Dose 20 MG; Start 08/22/17 at 09:00 Pantoprazole (Protonix Tab) 40 mg BID@06,18 PO Last administered on 09/03/17 05:12; Admin Dose 40 MG; Start 08/22/17 at 01:00 Atorvastatin Calcium (Lipitor) 10 mg QHS PO Last administered on 09/02/17 21: 27; Admin Dose 10 MG; Start 08/22/17 at 21:00 Ondansetron HCl (Zofran Inj) 4 mg Q6H PRN IV NAUSEA AND/OR VOMITING; Start 08/22/17 at 00:30 Nitroglycerin (Nitroglycerin (Sl Tab) 0.4 Mg) 1 tab Q5M PRN SL CHEST PAIN; Start 08/22/17 at 00:30 Morphine Sulfate (morphine) 2 mg Q4H PRN IV PAIN LEVEL 7-10; Start 08/22/17 at 00:30 Docusate Sodium (Colace) 100 mg Q12H PRN PO CONSTIPATION; Start 08/22/17 at 00: 30 Bisacodyl (Dulcolax) 5 mg DAILY PRN PO CONSTIPATION; Start 08/22/17 at 00:30 Guaifenesin (Robitussin Liquid Cup) 200 mg Q4H PRN PO COUGH Last administered on 08/30/17 06:32; Admin Dose 200 MG; Start 08/28/17 at 11:30 Phenol (Cepastat Lozenge) 1 lozenge Q1H PRN MT COUGH Last administered on 08/28 22:34; Admin Dose 1 LOZENGE; Start 08/28/17 at 11:30 KEITH DAO MD Sep 03, 2017 09:09
[2017-09-03] MEDS: ENALAPRIL 20 MG TAB PO SCH (09:32)
--- NOTE | 2017-09-03 12:02 | CONS ---
Date/Time of Note Date/Time of Note DATE: 09/03/17 TIME: 11:59 Assessment/Plan Assessment/Plan Additional Assessment/Plan Assessment and recommendations; 1. Patient admitted for nonspecific chest pain discovered to have right hilar mass, status post bronchoscopy with severe anthracotic changes bilaterally as well as what appear to be significant endobronchial inflammation regarding right middle lobe, biopsies are only showing anthracotic changes without any evidence of malignancy. 2. Patient underwent CT imaging of the chest in order to perform a CT guided biopsy however there is significant reduction in the area of targeted biopsy. Indicative of healing inflammatory changes. At this time I would recommend discharging the patient home. Obtain follow-up CT imaging of the chest in about 4 weeks time. Consultation Date/Type/Reason Admit Date/Time Aug 21, 2017 at 20:35 Type of Consultation: Pulmonary Referring Provider: ALANNA TAM 24 HR Interval Summary Free Text/Dictation Patient condition is stable. Denies any symptoms of shortness of breath, chest pain. General exam; elderly woman, awake alert, currently in no distress. Exam/Review of Systems Vital Signs Vitals Vital Signs Date Time Temp Pulse Resp B/P Pulse Ox O2 Delivery O2 Flow Rate FiO2 09/03/17 09:14 88 20 94 21 09/03/17 07:57 99.0 128/69 09/03/17 02:30 Room Air Intake and Output 09/02/17 09/02/17 09/03/17 15:00 23:00 07:00 Intake Total 360 ml 460 ml Balance 360 ml 460 ml Exam HEENT exam; supple neck, no JVD. No lymphadenopathy. Midline trachea. No thyromegaly. Patient is edentulous. Chest exam; clear to auscultation. S1-S2 audible, no murmurs. Regular rhythm. Abdomen exam; soft, protuberant. Nontender. No organomegaly. Bowel sounds audible. Extremity exam; no peripheral edema. BATTERY STACKER exam; no focal deficit. Medications Medications Current Medications Carvedilol (Coreg) 3.125 mg BID PO Last administered on 09/03/17 09:31; Admin Dose 3.125 MG; Start 08/22/17 at 00:30 Enalapril Maleate (Vasotec) 20 mg DAILY PO Last administered on 09/03/17 09: 32; Admin Dose 20 MG; Start 08/22/17 at 09:00 Pantoprazole (Protonix Tab) 40 mg BID@06,18 PO Last administered on 09/03/17 05:12; Admin Dose 40 MG; Start 08/22/17 at 01:00 Atorvastatin Calcium (Lipitor) 10 mg QHS PO Last administered on 09/02/17 21: 27; Admin Dose 10 MG; Start 08/22/17 at 21:00 Ondansetron HCl (Zofran Inj) 4 mg Q6H PRN IV NAUSEA AND/OR VOMITING; Start 08/22/17 at 00:30 Nitroglycerin (Nitroglycerin (Sl Tab) 0.4 Mg) 1 tab Q5M PRN SL CHEST PAIN; Start 08/22/17 at 00:30 Morphine Sulfate (morphine) 2 mg Q4H PRN IV PAIN LEVEL 7-10; Start 08/22/17 at 00:30 Docusate Sodium (Colace) 100 mg Q12H PRN PO CONSTIPATION; Start 08/22/17 at 00: 30 Bisacodyl (Dulcolax) 5 mg DAILY PRN PO CONSTIPATION; Start 08/22/17 at 00:30 Guaifenesin (Robitussin Liquid Cup) 200 mg Q4H PRN PO COUGH Last administered on 08/30/17 06:32; Admin Dose 200 MG; Start 08/28/17 at 11:30 Phenol (Cepastat Lozenge) 1 lozenge Q1H PRN MT COUGH Last administered on 08/28 22:34; Admin Dose 1 LOZENGE; Start 08/28/17 at 11:30 ALICIA JACOBSON Sep 03, 2017 12:02
--- NOTE | 2017-09-03 12:48 | PDOCDIS ---
Discharge Instructions CONDITION Patient Condition: Stable HOME CARE INSTRUCTIONS: Special Diet: CARDIAC DIET FOLLOW UP/APPOINTMENTS Follow-up Plan Follow up in 4 weeks with the lung doctor who saw you in the hospital to get a follow up CT scan Chapo un seguimiento en 4 semanas con el idris adairmn que lo molly en el hospital para obtener un TC de seguimiento Dr Markus Chapman [address] [facility] [place] [address] Phone: # [phone] SONG NOBLES MD Sep 03, 2017 12:48
--- NOTE | 2017-09-03 12:51 | DS ---
Date/Time of Note Date/Time of Note DATE: 09/03/17 TIME: 12:48 Discharge Summary Admission/Discharge Info Admit Date/Time Aug 21, 2017 at 20:35 Discharge Date/Time Discharge Diagnosis lung mass of unclear etiology Patient Condition: Stable Consults pulmonology, oncology Procedures 10.19 CT chest IMPRESSION: Markedly decreased right lower lobe opacity/mass. Biopsy was not performed. A follow-up CT chest is recommended in 6-8 weeks. 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 Operation/Procedure Performed Scope was then introduced into the right mainstem bronchus with evaluation of the right upper lobe which was normal followed by evaluation of bronchus intermedius with evaluation of the lower lobe which was partially occluded by tumor with complete occlusion of the middle lobe by tumor. Superior segment of right lower lobe was patent. Multiple endobronchial biopsies were performed followed by brushing and then finally by a washing. There was minimal bleeding at the biopsy site. The scope was then withdrawn. MICROSCOPIC DIAGNOSIS: A-Endobronchial biopsy: -- Focal histiocytic aggregates with anthracotic pigments. -- No evidence of malignancy. B-Right lower lobe, washing: -- Blood and rare reactive bronchial epithelial cells. -- No malignant cells are identified. C-Endobronchial brushing: -- Reactive bronchial epithelial cells. -- No malignant cells are identified. MICRO: FUNGAL/AFB CULTURES NEGATIVE 10.8 CTA chest IMPRESSION: No evidence of pulmonary embolus. Ill-defined right infrahilar mass with extrinsic compression of the right lower lobar pulmonary artery and occlusion of the superior segment right lower lobe bronchus with postobstructive consolidation. There is associated right hilar adenopathy. There appears to be invasion into the subcarinal space with loss of normal fat planes with the esophagus. The findings are most concerning for a neoplastic process. Recommend correlation with bronchoscopy and consider tissue sampling and PET imaging for follow-up. Additional calcified bilateral hilar lymph nodes and right lower and left upper lobe calcified granulomas are likely a sequela of prior granulomatous disease. Age indeterminate mild T12 compression fracture. Hx of Present Illness cc: substernal chest pain x 8 days Patient is a 76-year-old female with hypertension and high cholesterol who presents with chest pain. She has midsternal chest pain which radiates to her neck. The symptoms have been there for the past 8 days. She said the pain was worse today. She had a cough and shortness of breath as well. She reports subjective fevers, but did not check her temp. She also reports at times she noticed specs of blood after repeated coughing bouts. She goes to a local clinic for her primary care. She has a 30 pack year smoking history. Denies any recent travel or any recent foreign visitors. She denies any night sweats or chills or weight loss. allergies: nkda meds: Carvedilol, enalapril, simvastatin, omeprazole Hospital Course 76 yo F admitted for chest pain, found to have lung mass sp bronch with biopsy .. bronch path negative. Plan was for IR biopsy 09.02, however merchandising intern CT obtained by IR, mass reportedly much smaller and biopsy cancelled. Pt to f/u within pulm in 4 weeks for repeat imaging and further evaluation. Home Meds Reported Medications Omeprazole* (Omeprazole*) 20 Mg Capsule., 20 MG PO BID, #60 CAP 08/22/17 Simvastatin (Simvastatin) 20 Mg Tablet, 20 MG PO QHS, #30 TAB 08/22/17 Enalapril Maleate* (Enalapril Maleate*) 20 Mg Tablet, 20 MG PO DAILY, TAB 08/22/17 Carvedilol* (Carvedilol*) 3.125 Mg Tablet, 3.125 MG PO BID, #60 TAB 08/22/17 Follow-up Plan Follow up in 4 weeks with the lung doctor who saw you in the hospital to get a follow up CT scan Hcapo un seguimiento en 4 semanas con el mdico de pulmn que lo molly en el hospital para obtener un TC de seguimiento Dr Markus Jacobson [address] [facility] [address] [place] [address] Phone: # [phone] Primary Care Provider Care Physician No Primary Time spent on discharge: > 30 minutes Copies To: CC: MARKUS JACOBSON ELLEN MD Sep 03, 2017 12:51
== END 2017-09-03 15:40 | disposition home or self-care (01) | DRG 166 ==
LOC: E/R 17:09 → TEL 20:35 → MS2 08-22 21:52
PROVIDERS: ADMIT Family Medicine; ATTEND Family Medicine
PROC: 0BDF8ZX Extraction of Right Lower Lung Lobe, Via Natural or Artificial Opening Endoscopic, Diagnostic (ICD-10-PCS; 2017-08-27)
PROC: 0BBF8ZX Excision of Right Lower Lung Lobe, Via Natural or Artificial Opening Endoscopic, Diagnostic (ICD-10-PCS; principal; 2017-08-27 10:00)
DX: D49.1 Neoplasm of unspecified behavior of respiratory system (principal); J18.8 Other pneumonia, unspecified organism; I28.8 Other diseases of pulmonary vessels; R04.2 Hemoptysis; J44.9 Chronic obstructive pulmonary disease, unspecified; R13.10 Dysphagia, unspecified; R07.9 Chest pain, unspecified; I10 Essential (primary) hypertension; E78.00 Pure hypercholesterolemia, unspecified; Z87.891 Personal history of nicotine dependence; E66.9 Obesity, unspecified; Z68.34 Body mass index [BMI] 34.0-34.9, adult; Z77.110 Contact with and (suspected) exposure to air pollution; R59.0 Localized enlarged lymph nodes; I77.1 Stricture of artery
CPT/HCPCS: 36415; 70470; 71010; 71250; 71275; 74177; 80048; 80053; 80061; 82378; 82550; 82553; 82784; 83036; 83735; 84443; 84484; 85025; 85610; 85730; 86320; 88104; 88305; 88307; 88313; 93005; 93306; 94640; 94664; J1100; J2250; J2370; J2405; J2765; J2930; J3010; J7040; Q9967